=== PATIENT | male | born 1970 | race Caucasian/White ===

== ENCOUNTER 2017-12-19 16:50 | Inpatient (IN) | payer OTHER ==
[2017-12-19] MEDS ORDERED: SODIUM CHLORIDE 0.9% 10ML INJ IV PRN (17:49)
[2017-12-19] MEDS: Ringers Lactate 1,000 ML IV SCH (18:26)
[2017-12-19] MEDS: PIPER/TAZO/NS 3.375gm 3.375 GM/100 ML BAG IVPB SCH (18:31)
[2017-12-19] MEDS: ONDANSETRON 4 MG/2 ML VIAL IV PRN (18:35)
[2017-12-19] MEDS: HYDROMORPHONE HCL 1 MG/ML INJ IV PRN ×2 (18:35→21:24)
[2017-12-19] MEDS: PANTOPRAZOLE 40 MG INJ IVP SCH (19:48)
--- NOTE | 2017-12-19 20:38 | RAD REPORT ---
EXAM DESCRIPTION: RAD - Chest Single View - 12/19/2017 8:31 pm CLINICAL HISTORY: Clearance for possible sx Chest pain. COMPARISON: <Comparisons> FINDINGS: Portable technique limits examination quality. The lungs are grossly clear. The heart is normal in size. No displaced fractures. IMPRESSION: No acute intrathoracic process suspected.
[2017-12-19 20:48] LABS: Urine Appearance CLEAR; Urine Bilirubin NEGATIVE (NEG); Urine Blood NEGATIVE (NEG); Urine Color YELLOW; Urine Glucose NEGATIVE (NEG); Urine Protein NEGATIVE (NEG); Urine Specific Gravity >=1.030 (1.005-1.030)
[2017-12-19 20:49] LABS: Urine Microscopic Reflex NO UMIC
[2017-12-20] MEDS: HYDROMORPHONE HCL 1 MG/ML INJ IV PRN ×6 (00:15→21:15)
[2017-12-20] MEDS: PIPER/TAZO/NS 3.375gm 3.375 GM/100 ML BAG IVPB SCH ×3 (00:16→16:04)
[2017-12-20] MEDS: Ringers Lactate 1,000 ML IV SCH ×3 (00:26→17:21)
[2017-12-20 05:51] LABS: Absolute Lymphocytes (CBC) 1.4 K/uL (0.7-4.9); Absolute Monocytes 0.7 K/uL (0.1-1.3); Absolute Neutrophil 6.7 K/uL (1.8-8.0); Basophils % 0.2 % (0-1.3); Eosinophils % 1.7 % (0-4.4); Hematocrit 43.4 % (39.6-49.0); MCV 95.4 fL (80-100); MPV 8.2 fL (7.6-11.3); Monocytes % 7.9 % (3.3-12.3); RBC Red Blood Cell Count 4.55 M/uL (4.33-5.43)
[2017-12-20 06:07] LABS: Potassium 4.3 mEq/L (3.6-5.0)
[2017-12-20 06:10] LABS: Phosphorus 3.5 mg/dL (2.5-4.3)
[2017-12-20] MEDS: PANTOPRAZOLE 40 MG INJ IVP SCH (09:03)
--- NOTE | 2017-12-20 09:44 | EKG ---
Test Date: 2017-12-19 Test Time: 20:46:52 Vertical Punch Operator: RT Uriarte MEASUREMENT RESULTS: Intervals: Rate: 72 OK: 184 QRSD: 100 QT: 374 QTc: 409 [place]: P: 48 OK: 184 QRS: -9 T: 10 INTERPRETIVE STATEMENTS: Normal sinus rhythm Normal ECG No previous ECG available for comparison Electronically Signed On 12-20-17 09:43:31 CDT by Chris Platt
--- NOTE | 2017-12-20 11:30 | CON ---
Reason For Consultation: Dyspnea on exertion, chest tightness, possibly coronary heart disease. History Of Present Illness: Mr. Seymour is a gentleman, who came into the hospital with abdominal mare n. He was found to have diverticulitis of the sigmoid, seems to be getting better with bowel rest an d antibiotics. I am asked to see him because of his symptoms that he has had for about 2 months, he says with heavy exertion, not moderate exertion. 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 When he stands up, he is lightheaded and dizzy. He was diagnosed with mitral prolapse when he was a teenager. He h as never had diabetes, hypertension, dyslipidemia. No history of stroke, myocardial infarction. Medications: He takes no medicines. Allergies: HAS NO ALLERGIES. Social History: He uses no tobacco. Alcohol use is sporadic, sometimes binge drinking, but it is in frequent. No illegal drugs. Physical Examination: Vital Signs: He is 5 feet 11 inches, 206 pounds. HEENT: Normal. Lungs: Clear. Heart: Within normal limits. I do not hear murmur or a friction rub or a click. Abdomen: Soft. Extremities: No cyanosis, clubbing, or edema. Distal pulses are normal. Diagnostic Data: His electrocardiogram shows everything is normal. Impression: The patient may will have coronary artery disease causing his symptoms. I do not think he has enough mitral regurgitation or left ventricular dysfunction to cause the dyspnea on exertion. So, I am going to ask him to get an echo and a pharmacologic nuclear stress test. I do not think he could walk on a treadmill. He complains of severe foot pain, probably has peripheral neuropathy cau sing that and we will decide on whether to do further testing such as a cardiac cath after those 2 te sts are done. He should also have a lipid panel. DECLAN/MASHA Voice ID: [id number] Report ID: [id number]
[2017-12-20] MEDS: ACETAMINOPHEN 325 MG TABLET PO PRN ×2 (11:55→21:28)
[2017-12-20] MEDS: ONDANSETRON 4 MG/2 ML VIAL IV PRN (16:49)
--- NOTE | 2017-12-20 17:02 | ECHO ---
HEIGHT: 5 ft 11 in WEIGHT: 206 lb 14.4 oz DATE OF STUDY: 12/20/[address]: Chris Platt MD 2-DIMENSIONAL: YES M.MODE: YES DOPPLER: YES COLOR FLOW: YES TDS: PORTABLE: DEFINITY: BUBBLE STUDY: DIAGNOSIS: HISTORY OF TAURUS VALVE PROLAPSE, CHEST PAIN. CARDIAC HISTORY: CATHERIZATION: NO SURGERY: NO PROSTHETIC VALVE: NO PACEMAKER: NO MEASUREMENTS (cm) DIASTOLIC (NORMALS) SYSTOLIC (NORMALS) IVSd 0.9 (0.6-1.2) LA Diam 2.9 (1.9-4.0) LVEF 72% LVIDd 5.1 (3.5-5.7) LVIDs 3.0 (2.0-3.5) %FS 42% LVPWd 0.9 (0.6-1.2) Ao Diam 3.4 (2.0-3.7) 2 DIMENSIONAL ASSESSMENT: RIGHT ATRIUM: NORMAL LEFT ATRIUM: NORMAL RIGHT VENTRICLE: NORMAL LEFT VENTRICLE: NORMAL TRICUSPID VALVE: NORMAL MITRAL VALVE: NORMAL PULMONIC VALVE: NORMAL AORTIC VALVE: NORMAL PERICARDIAL EFFUSION: NONE AORTIC ROOT: NORMAL LEFT VENTRICULAR WALL MOTION: NORMAL DOPPLER/COLOR FLOW: NORMAL COMMENTS: NORMAL TWO DIMENSIONAL ECHOCARDIOGRAM WITH DOPPLER TECHNOLOGIST: JOELLEN SHEETS
--- NOTE | 2017-12-20 17:56 | HP ---
Date of Admission: 12/19/2017 Reason: Abdominal pain. History Of Present Illness: The patient is a 47-year-old gentleman, who comes in with approximately a 4-day history of lower abdominal pain. This was localized into the left lower quadrant, initially crampy in nature, associated with nausea. No vomiting. No diarrhea. Does have constipation. No bl ood in his stool. No dysuria or hematuria. No sore throat, runny nose, cough, headaches, or dizzine ss. Slight shortness of breath on exertion. No fever or chills. Review of Systems: Otherwise unremarkable. The patient never had a colonoscopy. Past Medical History: Mitral valve prolapse, followed by Dr. Betancourt. Past Surgical History: Appendectomy, scrotal surgery for hydrocele, eye surgery. Allergies: NO ALLERGIES. Social History: Denies smoking. Family History: Significant for an SC and brain cancer in the grandparent. Physical Examination: Vital Signs: Stable. He is afebrile. General: He is awake, alert, and oriented x3. Head and Neck: Cranial nerves 2 through 12 grossly within normal limits. No neck masses. No JVD. Throat clear. Neck is supple. Chest: Clear. Heart: S1, S2. Abdomen: Soft, nondistended. Positive bowel sounds. Positive left lower quadrant tenderness with m inimal rebound. No rigidity or guarding. Extremities: Adequately perfused. Neuro: Nonfocal. Diagnostic Data: CT of the abdomen and pelvis reviewed with Dr. Jasso. Has ctct-up-uezxqymi diver ticulitis with just a couple of air pockets right next to the inflammatory area. No free air. No ab scess. White count was elevated at [place] and here is normal, just a left shift. Assessment: Acute sigmoid diverticulitis. Recommendations: IV antibiotics. We will start him on clear liquids with dietary consultation. We will get a consultation with Cardiology regarding his mitral valve prolapse with shortness of breath with exertions and hopefully in the hospital for a couple of days, and the patient will need oral ant ibiotics for 2 weeks after discharge and an outpatient colonoscopy in 4-6 weeks. Plan of care discus sed in detail with the patient. CATHERINE/MASHA Voice ID: [id number]
[2017-12-21] MEDS: PIPER/TAZO/NS 3.375gm 3.375 GM/100 ML BAG IVPB SCH ×3 (00:29→16:20)
[2017-12-21] MEDS: HYDROMORPHONE HCL 1 MG/ML INJ IV PRN ×5 (00:30→20:34)
[2017-12-21] MEDS: Ringers Lactate 1,000 ML IV SCH ×3 (02:00→16:21)
[2017-12-21] MEDS: ACETAMINOPHEN 325 MG TABLET PO PRN ×2 (05:01→10:44)
[2017-12-21 05:43] LABS: Absolute Monocytes 0.6 K/uL (0.1-1.3); Absolute Neutrophil 4.4 K/uL (1.8-8.0); Basophils % 0.2 % (0-1.3); Eosinophils % 3.7 % (0-4.4); Hematocrit 42.4 % (39.6-49.0); Lymphocytes % 27.2 % (15.3-44.8); MCH 33.4 pg (27.0-35.0); MCV 94.9 fL (80-100); MPV 8.3 fL (7.6-11.3); Monocytes % 8.4 % (3.3-12.3); RBC Red Blood Cell Count 4.46 M/uL (4.33-5.43)
[2017-12-21 06:07] LABS: Magnesium 2.1 mg/dL (1.8-2.5); Potassium 4.2 mEq/L (3.6-5.0)
[2017-12-21] MEDS ORDERED: REGADENOSON 0.4 MG/5 ML SYR IV ONE (07:35)
[2017-12-21] MEDS: PANTOPRAZOLE 40 MG INJ IVP SCH (08:34)
--- NOTE | 2017-12-21 11:14 | RAD REPORT ---
EXAM DESCRIPTION: NM - Rest Stress Cardiac Imaging - 12/21/2017 11:02 am CLINICAL HISTORY: Chest pain. COMPARISON: None. TECHNIQUE: The patient was administered approximately 10mCi of Tc 99m Sestamibi prior to resting SPE CT imaging of the heart. The patient was then administered approximately 30 mCi of Tc 99m Sestamibi f ollowing exercise or pharmacologic stress. Multiplanar SPECT images were reviewed. FINDINGS: Small area of diminished radiotracer activity involves the inferior left ventricular myoc ardium on rest and stress images likely secondary to attenuation from the diaphragm. Remainder of the left ventricular myocardium demonstrates normal radiotracer activity. The left ventricular ejection fraction equals 60% IMPRESSION: Negative for a myocardial perfusion defect
--- NOTE | 2017-12-21 13:22 | TREADPHA ---
DX: CHEST PAIN Date of Study: 12/21/17 Ht: 5 11 Wt: 206 lb 14.4 oz Consulting Physician: FRANCO MEDICATIONS: TYLENOL, DILAUDID, ZOFRAN, PRONTONIX, ZOSYN HISTORY: 47 YEAR OLD MALE WITH COMPLAINTS OF DIZZINESS, ABDOMEN PAIN. PHYSICIAL EXAMINATION: RESTING B.P.: 127/83 RESTING H.R.: 59 RESTING EKG: NORMAL PROTOCOL: LEXISCAN EXERCISE TIME: 3:30 B.P. AT [place] STRESS: 118/76 IMPRESSION: LEXISCAN INJECTED CARDIOLITE PER PROTOCOL, SEE NUCLEAR MEDICINE REPORT. NO SUPRA VENTRICULAR TACHYCARDIA, NO VENTRICULAR TACHYCARDIA, NO PREMATURE VENTRICULAR COMPLEXES.
--- NOTE | 2017-12-21 13:49 | PN ---
Date of Progress Note: 12/21/2017 Subjective: The patient is awake, alert. No abdominal pain. He still has shortness of breath. He had an echo and a stress test done, the results of which are pending. Objective: Abdomen: Soft, nondistended. Minimal tenderness in the left lower quadrant. Assessment: Acute sigmoid diverticulitis, dyspnea on exertion. Recommendations: Cardiology follow up. Continue IV antibiotics. We will advance diet. Hopefully d ischarged tomorrow. CATHERINE/MASHA Voice ID: [id number] Report ID: [id number]
[2017-12-22] MEDS: ACETAMINOPHEN 325 MG TABLET PO PRN (00:08)
[2017-12-22] MEDS: PIPER/TAZO/NS 3.375gm 3.375 GM/100 ML BAG IVPB SCH ×3 (00:08→09:00)
[2017-12-22] MEDS: HYDROMORPHONE HCL 1 MG/ML INJ IV PRN ×3 (01:02→23:12)
[2017-12-22] MEDS: Ringers Lactate 1,000 ML IV SCH (02:00)
[2017-12-22] MEDS ORDERED: NA CHLORIDE 0.9% 1,000 ML ONE (05:36)
[2017-12-22] MEDS: PANTOPRAZOLE 40 MG INJ IVP SCH (08:24)
[2017-12-22] MEDS ORDERED: DIPHENHYDRAMINE 50 MG/ML VIAL IV ONE (08:53)
[2017-12-22] MEDS ORDERED: EPINEPHRINE/PF 1 MG/ML AMP IM ONE (09:10)
[2017-12-22] MEDS ORDERED: DEXAMETHASONE 10 MG/ML VIAL IM ONE (09:36)
[2017-12-22] MEDS: NA CHLORIDE 0.9% 1,000 ML IV SCH ×2 (10:00→20:04)
[2017-12-22] MEDS ORDERED: DIPHENHYDRAMINE 25 MG TAB/CAP PO PRN (10:00)
[2017-12-22 12:15] LABS: Absolute Lymphocytes (CBC) 0.5 K/uL (0.7-4.9); Absolute Monocytes 0.3 K/uL (0.1-1.3); Basophils % 0.2 % (0-1.3); Eosinophils % 0.3 % (0-4.4); Hematocrit 46.1 % (39.6-49.0); Lymphocytes % 4.4 % (15.3-44.8); MCH 32.3 pg (27.0-35.0); MCV 94.9 fL (80-100); Monocytes % 2.5 % (3.3-12.3); RBC Red Blood Cell Count 4.86 M/uL (4.33-5.43)
--- NOTE | 2017-12-22 12:17 | PN ---
Mr. Seymour has stress test yesterday that was normal, not suggestive of ischemia. Echocardiogram was normal. So, I recommend we not do any further testing on his heart. This morning at 8 a.m., he dev eloped angioedema with some tongue swollen. He got some epinephrine, diphenhydramine, and dexamethas one, and seems to be doing better. He has been getting Zosyn and Zofran for his diverticulitis. I a m really not entirely sure what gave his anaphylactic reaction. He does not need to have a cardiac c ath or any other testing done on his heart other than what has been done. DECLAN/MASHA Voice ID: [id number] Report ID: [id number]
--- NOTE | 2017-12-22 12:32 | PN ---
Date of Progress Note: 12/22/2017 Subjective: Earlier today, the patient had swelling of his face and tongue obstructing partially his airway. He was given Benadryl and then EpiPen. He is resolved. Dr. Magdaleno was consulted. He was a lso given some steroids. The etiology is unclear; however, it could be secondary to the contrast use for the stress test or Zosyn, and Zosyn was stopped. The patient currently is breathing well. Swel ling has gone down. He feels better, in no distress. No abdominal pain. He is tolerating his diet. Objective: Vital Signs: Stable. Afebrile. Abdomen: Soft, nondistended, nontender. Positive bowel sounds. Assessment: Acute sigmoid diverticulitis, coronary artery disease, and angioedema, etiology unclear. Recommendations: We will monitor the patient another day in the hospital, make sure this improves. We will start him on Cipro and Flagyl for antibiotics. His cath will have to wait and can be done as an outpatient, and plan of care was discussed with Dr. Platt, Dr. Magdaleno, and family. /MODL Voice ID: [id number] Report ID: [id number]
[2017-12-22 13:01] LABS: ALT/SGPT 25 U/L (12-78); AST/SGOT 19 U/L (15-37); Albumin 3.4 g/dL (3.4-5.0); Alkaline Phosphatase 88 U/L (45-117); BUN Blood Urea Nitrogen 8 mg/dL (7-18); Bicarbonate 26 mmol/L (21-32); Bilirubin Total 0.9 mg/dL (0.2-1.0); Glucose Level 95 mg/dL (74-106); Potassium 4.2 mmol/L (3.5-5.1); Protein, Total 7.1 g/dL (6.4-8.2); Sodium Level 138 mmol/L (136-145)
[2017-12-22] MEDS: METRONIDAZOLE 500mg IVPB 500 MG/100 ML BAG IV SCH ×2 (13:02→17:36)
[2017-12-22] MEDS: CIPROFLOXACIN 400mg IV 400 MG/200 ML BAG IV SCH ×2 (13:05→23:13)
[2017-12-22 13:08] LABS: Blood Morphology Comment NOT SEEN (NOT SEEN); Platelet Estimate ADEQ; Urine White Blood Cell Casts OK
--- NOTE | 2017-12-22 14:54 | P.CNS ---
Date of Consult: 12/22/17 HPI: This is a 39-year-old male with no significant past medical history who is admitted to the hospital from all this ER for diverticulitis. Patient was in his general healthy state until this morning when he started having swelling in his tongue and felt like his legs were swollen along with closing of his throat. Patient had Zosyn administer at 1:00 a.m. last night after which she has not had any medications. Patient noted that with the soiling started around 8 o'clock this morning after he woke up from his nap. Patient is scheduled for a cardiac catheterizing today after having a stress test yesterday. Patient was NPO after midnight and last time he had potato soup at around 8:00 p.m. last night. No other offending agents noted. Medicine team was consulted for anaphylactic reaction. PE: Vitals: Temp Pulse Resp BP Pulse Ox 98.7 F 84 16 128/72 97 12/22/17 12:00 12/22/17 12:00 12/22/17 12:00 12/22/17 12:00 12/22/17 12:00 Gen: NAD, AAO x 3. laying in bed. saturating at 97% without oxygen HEENT: Lips on the right side swollen and Tongue on the left side swollen. Uvula swollen as well. Difficulty Swallowing noted. CVS: RRR, No murmmer noted Lung: No wheezing rales or rhonchi, CTABL Abd: NT, ND soft MS: + Pulse and negative edema Neuro: CN 2 - 12 intact Labs: 12/22/17 12:01: Sodium 138, Potassium 4.2, Chloride 106, Carbon Dioxide 26, BUN 8, Creatinine 0.90, Estimated GFR > 90, Glucose 95, Calcium 8.7, Total Bilirubin 0.9, AST 19, ALT 25, Alkaline Phosphatase 88, Serum Total Protein 7.1 , Albumin 3.4, Globulin 3.7 H, Albumin/Globulin Ratio 0.9 L 12/22/17 12:01: WBC 11.9 H D, RBC 4.86, Hgb 15.7, Hct 46.1, MCV 94.9, MCH 32.3, MCHC 34.1, RDW 13.0, Plt Count 267, MPV 8.0, Neutrophils % 92.6 H, Lymphocytes % 4.4 L, Monocytes % 2.5 L, Eosinophils % 0.3, Basophils % 0.2, Absolute Neutrophils 11.0 H, Absolute Lymphocytes 0.5 L, Absolute Monocytes 0.3, Absolute Eosinophils 0.0, Absolute Basophils 0.0, Morphology Comment Not seen Assessment/Plan: 1. Anaphylaxis: Unknown allergen at this time. Epi x 1, Decadron x1 and benadryl x 1. Improvement noted. Will schedule Bendryl and Prednisone q6h for total of 7 days. Stop Zosyn and protonix at this time. IV fluids as well 2. Diverticulitis: Treatment as per surgery 3. MVP: Stress test and ECHO done. Pt was scheduled for cath which is now cancelled. Will be done outpt. Cardiology on the case. Dispo: DC in 24 hrs if continue to improve.
[2017-12-22] MEDS: DIPHENHYDRAMINE 25 MG TAB/CAP PO SCH ×2 (15:09→19:59)
[2017-12-22] MEDS ORDERED: METRONIDAZOLE 500mg IVPB 500 MG/100 ML BAG IV SCH (17:00)
[2017-12-22] MEDS: predniSONE 20 MG TAB PO SCH (19:59)
[2017-12-22] MEDS ORDERED: CIPROFLOXACIN 400mg IV 400 MG/200 ML BAG IV SCH (21:00)
[2017-12-23] MEDS: METRONIDAZOLE 500mg IVPB 500 MG/100 ML BAG IV SCH ×3 (01:37→17:31)
[2017-12-23] MEDS: HYDROMORPHONE HCL 1 MG/ML INJ IV PRN ×2 (01:41→04:46)
[2017-12-23] MEDS: DIPHENHYDRAMINE 25 MG TAB/CAP PO SCH ×4 (03:30→21:26)
[2017-12-23] MEDS: NA CHLORIDE 0.9% 1,000 ML IV SCH (03:32)
[2017-12-23] MEDS: predniSONE 20 MG TAB PO SCH (08:40)
[2017-12-23] MEDS ORDERED: DEXAMETHASONE 10 MG/ML VIAL IV PRN (09:21)
[2017-12-23] MEDS ORDERED: TRAMADOL HCL 50 MG TAB PO PRN (09:55)
[2017-12-23] MEDS: CIPROFLOXACIN 400mg IV 400 MG/200 ML BAG IV SCH ×2 (11:15→21:25)
--- NOTE | 2017-12-23 12:16 | PN ---
Date of Progress Note: 12/23/2017 Subjective: The patient is awake, alert. This morning, he had slight swelling of his lips. His abd ominal pain is minimal. No nausea or vomiting. Objective: Vital Signs: Stable. Afebrile. Abdomen: Benign, soft, nondistended, and nontender. Positive bowel sounds. Laboratory Data: Reviewed. White count yesterday was 11.9 after his anaphylactic reaction. 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 Assessment: Acute sigmoid diverticulitis, angioedema etiology unclear, coronary artery disease. Recommendations: I discussed the case in detail with Dr. Magdaleno. She will decrease the frequency of the Benadryl, increase the dose of the prednisone, monitor him another day. We will keep him on anti biotics of Cipro and Flagyl at this time and if he stabilizes from his angioedema symptoms, he will b e discharged tomorrow on appropriate medications and will follow up with an Allergy/Immunology, [facility] care physician as well as in my office. I will be out of town and Dr. Magdaleno will discharge the pa tient tomorrow. /MODL Voice ID: [id number] Report ID: [id number]
--- NOTE | 2017-12-23 12:25 | P.CNS ---
Date of Consult: 12/23/17 Subjective: Pt seen and examined today. Case DW with Surgery. Pt is still having some swelling of the upper lips today. No new medication given PE: Vitals: Temp Pulse Resp BP Pulse Ox 97 F 57 18 101/58 L 97 12/23/17 08:00 12/23/17 08:00 12/23/17 08:00 12/23/17 08:00 12/23/17 08:00 Gen: NAD, AAO x 3. laying in bed. saturating at 97% without oxygen HEENT: Lips swollen on top and Tongue normal. Uvula normal. Right side facial swelling noted today as well CVS: RRR, No murmmer noted Lung: No wheezing rales or rhonchi, CTABL Abd: NT, ND soft MS: + Pulse and negative edema Neuro: CN 2 - 12 intact Labs: 12/22/17 12:01: Sodium 138, Potassium 4.2, Chloride 106, Carbon Dioxide 26, BUN 8, Creatinine 0.90, Estimated GFR > 90, Glucose 95, Calcium 8.7, Total Bilirubin 0.9, AST 19, ALT 25, Alkaline Phosphatase 88, Serum Total Protein 7.1 , Albumin 3.4, Globulin 3.7 H, Albumin/Globulin Ratio 0.9 L 12/22/17 12:01: Morphology Comment Not seen Assessment/Plan: 1. Anaphylaxis: Unknown allergen at this time. Epi x 1, Decadron x1 and benadryl x 1. Improvement noted. -Increase Benadryl to 50mg q6h and Prednisone 30 BID for total of 7 days. -Stop Zosyn and protonix at this time. 2. Diverticulitis: On Cipro And flagyl 3. MVP: Stress test and ECHO done. Pt was scheduled for cath which is now cancelled. Will be done outpt. Cardiology on the case. Dispo: DC in 24 hrs if continue to improve.
[2017-12-23] MEDS: ONDANSETRON 4 MG/2 ML VIAL IV PRN (20:00)
[2017-12-23] MEDS: MORPHINE 2 MG/ML SYR IV PRN (20:13)
[2017-12-23] MEDS: predniSONE 10 MG TAB PO SCH (21:26)
[2017-12-24] MEDS: METRONIDAZOLE 500mg IVPB 500 MG/100 ML BAG IV SCH ×2 (00:14→08:12)
[2017-12-24] MEDS: MORPHINE 2 MG/ML SYR IV PRN (00:14)
[2017-12-24] MEDS: DIPHENHYDRAMINE 25 MG TAB/CAP PO SCH ×2 (03:45→08:12)
[2017-12-24] MEDS: CIPROFLOXACIN 400mg IV 400 MG/200 ML BAG IV SCH (08:12)
[2017-12-24] MEDS: predniSONE 10 MG TAB PO SCH (08:12)
--- NOTE | 2017-12-24 15:22 | P.DS ---
Admission Date: 12/19/17 Discharge Date: 12/24/17 Disposition: ROUTINE DISCHARGE Discharge Condition: GOOD Reason for Admission: Diverticulitis Consultations: Cardiology and Hospitalist Procedures: None - Problems (1) Chest pain Status: Acute Qualifiers: Chest pain type: unspecified Qualified Code(s): R07.9 - Chest pain, unspecified (2) MVP (mitral valve prolapse) Status: Chronic (3) Anaphylactic reaction Status: Acute Qualifiers: Encounter type: initial encounter Qualified Code(s): T78.2XXA - Anaphylactic shock, unspecified, initial encounter (4) Diverticulitis Onset Date: 12/20/17 Status: Acute Brief History of Present Illness: The patient is a 47-year-old gentleman, who comes in with approximately a 4-day history of lower abdominal pain. This was localized into the left lower quadrant, initially crampy in nature, associated with nausea. No vomiting. No diarrhea. Does have constipation. No blood in his stool. No dysuria or hematuria. No sore throat, runny nose, cough, headaches, or dizziness. Slight shortness of breath on exertion. No fever or chills. Hospital Course: Overall during the hospital stay patient remained stable Patient was initially admitted to the hospital for abdominal pain nausea vomiting and abdominal cramping was found to have diverticulitis and concern was there for possible coronary artery syndrome. Cardiology was consulted by Surgery. Patient was initially started on IV Zosyn for diverticulitis. Cardiology recommended the patient get a stress test here in the hospital which was negative. However given the severity of his symptoms heart catheterizing was also recommended. Heart Cath was cancelled and was recc then as outpt. Patient however developed anaphylactic reaction to an unknown agent here in the hospital and started having lips swollewing, tongue swelling and thoart swelling. At that time hospitalist team was consulted. Patient was given epi pen x1, Decadron x1 and was started on Benadryl 25 mg q.6 hr and steriods. Intially his symptoms resolved after admistration of epi and decadron. However over night pt started having some facial swelling as well. Patient was then given Benadryl 50 mg q.6 hr and prednisone 30 mg b.i.d.. Patient had resolution of his symptoms and was discharged home under stable condition. Pt was discharged with Cipro and Flagyl along with tramadol which were all given to him here in the hospital without any allergic Reaction. Patient was asked to follow up with primary care provider, GI, cardiology. Vital Signs/Physical Exam: Temp Pulse Resp BP Pulse Ox 97.6 F 60 18 105/64 94 12/24/17 12:00 12/24/17 12:00 12/24/17 12:00 12/24/17 12:00 12/24/17 12:00 General: Alert, In no apparent distress HEENT: Atraumatic, PERRLA, EOMI Neck: Supple, JVD not distended Respiratory: Clear to auscultation bilaterally, Normal air movement Cardiovascular: Regular rate/rhythm, Normal S1 S2 Gastrointestinal: Normal bowel sounds, No tenderness Musculoskeletal: No tenderness Integumentary: No rashes Neurological: Normal speech, Normal tone, Normal affect Lymphatics: No axilla or inguinal lymphadenopathy Laboratory Data at Discharge: WBC 11.9 K/uL (4.3-10.9) H D 12/22/17 12:01 Hgb 15.7 g/dL (13.6-17.9) 12/22/17 12:01 Hct 46.1 % (39.6-49.0) 12/22/17 12:01 Plt Count 267 K/uL (152-406) 12/22/17 12:01 Sodium 138 mmol/L (136-145) 12/22/17 12:01 Potassium 4.2 mmol/L (3.5-5.1) 12/22/17 12:01 BUN 8 mg/dL (7-18) 12/22/17 12:01 Creatinine 0.90 mg/dL (0.55-1.3) 12/22/17 12:01 Glucose 95 mg/dL (74-106) 12/22/17 12:01 Phosphorus 3.5 mg/dL (2.5-4.3) 12/20/17 05:19 Magnesium 2.1 mg/dL (1.8-2.5) 12/21/17 05:20 Total Bilirubin 0.9 mg/dL (0.2-1.0) 12/22/17 12:01 AST 19 U/L (15-37) 12/22/17 12:01 ALT 25 U/L (12-78) 12/22/17 12:01 Alkaline Phosphatase 88 U/L (45-117) 12/22/17 12:01 Triglycerides Cancelled 12/21/17 Unknown Cholesterol Cancelled 12/21/17 Unknown HDL Cholesterol Cancelled 12/21/17 Unknown Cholesterol/HDL Ratio Cancelled 12/21/17 Unknown Home Medications: Ciprofloxacin HCl [Cipro 500 MG Tablet] 500 mg PO BID #28 tab 12/24/17 Diphenhydramine [Benadryl*] 50 mg PO Q6H #28 tab 12/24/17 Ondansetron HCl [Zofran] 4 mg PO DAILY PRN #5 tablet 12/24/17 metroNIDAZOLE [Flagyl] 500 mg PO Q8H #42 tablet 12/24/17 predniSONE [Deltasone*] 30 mg PO BID #14 tab 12/24/17 traMADol HCL [Ultram*] 50 mg PO Q6H PRN #15 tab 12/24/17 New Medications: Ciprofloxacin HCl [Cipro 500 MG Tablet] 500 mg PO BID #28 tab Diphenhydramine [Benadryl*] 50 mg PO Q6H #28 tab metroNIDAZOLE [Flagyl] 500 mg PO Q8H #42 tablet Ondansetron HCl [Zofran] 4 mg PO DAILY PRN #5 tablet PRN Reason: Nausea predniSONE [Deltasone*] 30 mg PO BID #14 tab traMADol HCL [Ultram*] 50 mg PO Q6H PRN #15 tab PRN Reason: Pain Patient Discharge Instructions: You will need to F/u with PCP Dr Alejandro. You marysol need to F/u with Cardiology Dr Platt or Dr Darlene Deleon. You will need to F /u with Dr Zeng or Dr Oliveira Diet: Regular Activity: Ad luz marina Followup: Chris Platt MD [ACTIVE - CAN ADMIT] - 1-2 Weeks (CALL THE OFFICE TO MAKE AN APPOINTMENT IN 1-2 WEEKS. ) Chris Alejandro MD [ACTIVE - CAN ADMIT] - 1 Week (CALL THE OFFICE ON WEDNESDAY TO MAKE AN APPOINTMENT IN 1 WEEK. ) Jorge Johnson MD [ACTIVE - CAN ADMIT] - 1-2 Weeks () Nikita Oliveira MD [OUTSIDE PHYSICIAN] - 1 Week (CALL THE OFFICE ON WEDNESDAY TO MAKE AN APPOINTMEN TIN 1 WEEK. ) Yobany Mccullough [OUTSIDE PHYSICIAN] - 1 Week (CALL THE OFFICE ON WEDNESDAY TO MAKE AN APPOINTMENT IN 1 WEEK. )
== END 2017-12-24 11:48 | disposition home or self-care (01) | DRG 392 ==
LOC: 2ND 16:55 → 4TH 12-21 16:49
PROVIDERS: ADMIT Surgery; ATTEND Surgery
DX: K57.32 Diverticulitis of large intestine without perforation or abscess without bleeding (principal); T78.2XXA Anaphylactic shock, unspecified, initial encounter; R07.9 Chest pain, unspecified; I34.1 Nonrheumatic mitral (valve) prolapse; Z53.09 Procedure and treatment not carried out because of other contraindication; T78.3XXA Angioneurotic edema, initial encounter; G62.9 Polyneuropathy, unspecified
CPT/HCPCS: 36415; 71045; 78452; 80048; 80053; 80061; 81003; 83735; 84100; 85025; 93005; 93017; 93306; A9500; C9113; J0171; J0744; J1100; J1170; J2270; J2405; J2543; J2785; J7030; J7512

== ENCOUNTER 2022-08-12 12:17 | Observation (INO) | payer BC, OTHER ==
[2022-08-12] MEDS ORDERED: Ringers Lactate 1,000 ML IV ONE (12:51)
[2022-08-12 12:54] LABS: SARS-CoV-2 Antigen Rapid Res Negative (Negative)
[2022-08-12] MEDS ORDERED: ACETAMINOPHEN 500 MG TAB ONE (13:04)
[2022-08-12] MEDS ORDERED: CELECOXIB 100 MG CAPSULE ONE (13:04)
--- NOTE | 2022-08-12 13:09 | P.HP ---
Date of Service: 08/19/22 PC: This 52-year-old male presented to an outpatient emergency facility with severe right upper quadrant abdominal pain for diagnosis and treatment. HPC: Patient has been experiencing severe right upper quadrant abdominal pain, rating into his back, for about the last 24 to 48 hours. Went to an outpatient facility was found to have cholecystitis with cholelithiasis. He was referred to my office this morning. He is still very uncomfortable, and wants to have his gallbladder removed. PSHx: Previous operations for bilateral variceals PMHx: Negative Social Hx: Denies any allergies Sys R: No cough, wheeze, shortness of breath. No chest pain or palpitations. Says he has been having some mild hesitancy but otherwise no other urological symptoms. O/E: Awake alert uncomfortable HEENT: Nonicteric Chest: Chest movement equal bilaterally Abd: Tender in the right upper quadrant Buras: Intact Data: Has documented cholecystitis with cholelithiasis Impression: Cholecystitis with cholelithiasis, biliary colic Plan: I will take him to the operating room for laparoscopic possible open cholecystectomy with cholangiogram. The risks of this procedure have been discussed. The possibility of bleeding, infection, injury to bile ducts blood vessels and intestines has been described. The possible need for an open and/or further procedures was discussed. He understands and wants to proceed.
[2022-08-12] MEDS ORDERED: ROCURONIUM 50 MG/5 ML VIAL IV ONE (13:34)
[2022-08-12] MEDS ORDERED: MIDAZOLAM HCL 2 MG/2 ML INJ ONE (13:34)
[2022-08-12] MEDS ORDERED: propofoL 200 MG/20 ML VIAL IV ONE (13:34)
[2022-08-12] MEDS ORDERED: FENTANYL CITR 100 MCG/2 ML ONE (13:34)
[2022-08-12] MEDS ORDERED: LIDOCAINE 2% MPF 5 ML VIAL ONE (13:35)
[2022-08-12] MEDS ORDERED: NS 0.9% VIAL 10 ML ONE (14:09)
[2022-08-12] MEDS: CEFOXITIN SODIUM 1 GM/VIAL ONE ×2 (14:15→14:33)
[2022-08-12] MEDS ORDERED: dexAMETHasone 10 MG/ML VIAL ONE (14:32)
[2022-08-12] MEDS ORDERED: KETOROLAC 30 MG/ML INJ ONE (14:33)
[2022-08-12] MEDS ORDERED: ONDANSETRON 4 MG/2 ML VIAL ONE (14:36)
[2022-08-12] MEDS ORDERED: GLYCOPYRROLATE 0.2 MG/ML SYR ONE (15:04)
--- NOTE | 2022-08-12 15:32 | P.OP ---
Preoperative diagnosis: Cholecystitis with cholelithiasis, biliary colic Postoperative diagnosis: The same Primary procedure: Laparoscopic cholecystectomy Secondary procedure: Cholangiogram Anesthesia: General Estimated blood loss: Less than 10 cc Specimen: Gallbladder and contents Operative Technique: The patient was brought the operating room and placed supine on the table. After the induction of adequate general endotracheal anesthesia, the area of the abdomen was prepped with DuraPrep solution, and he was draped in usual aseptic manner. A subumbilical incision was made. This was brought down through the skin and subcutaneous tissue. The Visiport was used to enter the peritoneal cavity and created pneumoperitoneum to approximately 12 mmHg. Under direct vision a 5 mm trocar was placed in the upper midline, and 2 other 5 mm trocars on the right side of the abdominal wall. We were now able to visualize the right upper quadrant. With the patient in reverse Trendelenburg and the table rolled to the left we are able to see the right upper quadrant. Markedly distended gallbladder was noted. We were able to place a grasper on the fundus. We could identify the gallbladder with a large amount of fat around the serosal surface. This was gently dissected away to reveal Chaidez's pouch. A grasper was placed on Chaidez's pouch and we were agile gradually able to expose the cystic duct and the cystic artery. Having obtained the critical view we can see on the upper portion of the cystic duct that there was a stone impacted in this area. We gently milked back. The junction between this and the common bile duct was exceedingly short. We made a small opening and to attempt a cholangiogram however there is ductal opening was not large enough to allow the aggression of our catheter but was close to the common bile duct. Because of this 1 clip was placed across this to secure the cystic duct. The attention was turned back towards the cystic artery. This was clipped and divided in the usual way. At this point the gallbladder was now dissected free from the liver bed. We found an area of accessory duct on the anterior surface a clip was placed on this and this accessory duct was divided. The gallbladder and having now been freed from the liver was placed into an Endo Catch, and brought out through the umbilical trocar site. Attention was turned back to the right upper quadrant. This area was gently irrigated with a saline solution. No biliary staining was noted in the areas. Adequate hemostasis had also been secured. At this point the umbilical trocar site was approximated using the Endo Close and an absorbable suture. The pneumoperitoneum was collapsed, the trocars were removed, and asher applied to the skin. At the end of the procedure he was in a stable condition when sent to the recovery room. Needle sponge instrument count were correct. No drains were placed. Complications: None Transferred to: Recovery Room Condition: Good
[2022-08-12] MEDS ORDERED: ONDANSETRON 4 MG/2 ML VIAL IV PRN (15:38)
[2022-08-12] MEDS: HYDROMORPHONE HCL 1 MG/ML INJ ONE ×2 (15:43→15:48)
[2022-08-12] MEDS ORDERED: HYDROMORPHONE HCL 1 MG/ML INJ ONE (15:51)
[2022-08-12 16:02] VITALS: O2SAT 96
--- OUTSIDE RECORDS SUMMARY | 2022-08-12 16:03 | XMS REPORT | Continuity of Care Document ---
:1970 Author Organization [facility] t Address [address] [place] [address] Care Team Providers Name Role Phone BRONSON MAGDALENO Primary Care Physician Unavailable Bronson Magdaleno Attending Clinician Unavailable ROSIO BRUNO Attending Clinician Unavailable Rosio Bruno MD Attending Clinician Doctor Unassigned, [place] Attending Clinician Unavailable Orville Salas DO Attending Clinician REYMUNDO HINTON Attending Clinician Unavailable REYMUNDO HINTON Attending Clinician Unavailable Reymundo Hinton DO Attending Clinician ROSIO BRUNO Admitting Clinician Unavailable Payers Payer Name Policy Type Policy Number Effective Date Expiration Date Martin weiner [employer] CHOICE [id number] 2019 POS II 00:00:00 [employer] [id number] 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 ity of prolapse prolapse 00:00: [address] [id number] Adult BMI Problem Com mon 30.0-30.9 Spirit kg/sq m [facility] [id number] Repetitive Problem Co mmon intrusions [facility] of sleep [facility] [id number] Hypersomni Problem Com mon a [facility] [id number] Chronic Problem Common fatigue [facility] [id number] BETHEL Problem Common (obstructi Spirit ve sleep [facility] apnea) [facility] [id number] Insomnia, Problem Com mon unspecifie [facility] d type [facility] [id number] Chronic Problem Commo n shortness [facility] of breath [facility] [id number] Depression Problem Co mmon with [facility] anxiety [facility] [id number] Exposure Problem Commo n to tobacco [facility] smoke [facility] [id number] History of Problem C ommon [address]152 diverticul [facility] itis [facility] [id number] Vitamin D Problem Comm on deficiency [facility] [id number] Mixed Problem Common hyperlipid [facility] emia [facility] [id number] Allergic Problem Commo n rhinitis, Spirit unspecifie - [facility] y, Medical unspecifie Center d trigger Dependence Dependence Problem C ommon on CPAP on CPAP [facility] ventilatio ventilatio - [facility] n n [facility] Allergies, Adverse Reactions, Alerts Allergy Allergy Status Severity Reaction(s) Onset Inactive Treating Comm ents Source Name Type Date Date Clinician DOXYCYCL DRUG Active Swelling Univer s INE INGREDI 01-22 ity of 00:00: [address] NO KNOWN Drug Active Univers ALLERGIE Class ity of S [facility] 463 Drug Active Unknown Common allergy [facility] Social History Social Habit Start Date Stop Date Quantity Comments Source History of Common Spirit - Tobacco Use [facility] Sex Assigned At Common Sp kenia - [facility] Exposure to 2022-05-10 2022-05-20 Not sure University of SARS-CoV-2 00:00:00 03:20:00 [facility] (event) Branch Alcohol intake 2022-05-20 2022-05-20 1.71 /d [facility] 00:00:00 00:00:[address] [facility] Tobacco use and 2015-05-24 2015-05-24 Smokeless tobacco Un iversity of exposure 00:00:00 00:00:00 non-user [facility] Smoking Status Start Date Stop Date Source Never smoked tobacco [facility] Medications Ordered Filled Start Stop Current Ordering Indication Dosage Frequency Signature Comments Components Source Medication Medication Date Date Medication? Clinician (SIG) Name Name Vitamin B12 Vitamin B12 2021-07 No 1000ug Common (Cyanocobal (Cyanocobal 2-05 S pirit love) love) 00:00: - [facility] 00 [facility] iopamidol 2021-07- No [id number] 100mL 100 mL, Univers (ISOVUE 07-20 Intravenou ity o f 370-500 mL) 12:30: 12:30 s, ONCE, 1 [place] injection 00 :00 dose, On Medica l 100 mL Wed Branch 05/20/22 at 0630, Routine NaCl 0.9% 2021-07 Yes 1000mL at 999 Univ ers (NS) IV 1-16 mL/hr, ity of infusion 11:30: Intravenou Zuhair as 1,000 mL 00 s, Medical CONTINUOUS Branch , Starting on Wed05/20/22 at 0530, Until Discontinu ed, Routine ketorolac 2021-07- No 30mg 30 mg, Unive rs (TORADOL) 07-20 Slow IV ity of injection 11:30: 10:34 Push, [place] 30 mg 00 :00 ONCE, 1 Medical dose, On Branch Wed05/20/22 at 0530, Routine proMETHazin 2021-07 No 25mg 25 mg, IV Univers e 07-20 Piggyback, ity of (PHENERGAN) 10:45: 10:42 [place] 1 [place] 25 [place] in 00 :00 dose, On Medical NaCl 0.9% [facility] Branch (NS) 50 mL 05/20/22 IV at 0445, piggyback LENI ondansetron 2021-07- No 4mg 4 mg, Slow Univers (ZOFRAN 1-16 11-16 IV Push, ity of (PF)) 09:40: 09:41 ONCE, 1 [place] injection 4 00 :00 dose, On Medi jessica mg Wed05/20/22 at 0345, LENI FENTanyl PF 2021-07- No 50ug 50 mcg, Un brittni (SUBLIMAZE -16 -16 Slow IV ity o f (PF)) 09:35: 09:36 Push, [place] injection 00 :00 ONCE, 1 Medical 50 mcg dose, On Branch Wed05/20/22 at 0345, LENI ondansetron 2021-07- No 4mg 4 mg, Slow Univers (ZOFRAN -16 05-20 IV Push, ity of (PF)) 09:29: 09:30 ONCE, 1 [place] injection 4 00 :00 dose, On Medi jessica mg Wed05/20/22 at 0330, LENI dicyclomine 2021-07 Yes [id number] 20mg Take 1 Univers 20 mg 1-16 tablet by ity of tablet 00:00: mouth [place] 00 every 6 Medical (six) Branch hours as needed for Abdominal pain. traMADoL 2021-07 Yes [id number] 50mg Take 1 Univers (ULTRAM) 50 1-16 tablet by ity of mg tablet 00:00: mouth [place] 00 every 6 Medical (six) Branch hours as needed for Pain (scale 7-10). Indication s: acute pain amoxicillin 2021-07 Yes [id number] 1{tbl} Take 1 Univers -clavulanat 1-16 tablet by ity of e [id number] 00:00: mouth [place] mg per 00 every 12 Medical tablet (twelve) Branch hours. proMETHazin 2021-07 Yes [id number] 25mg Take 1 Univers e 25 mg 1-16 tablet by ity of tablet 00:00: mouth [place] 00 every 6 Medical (six) Branch hours as needed for Nausea and Vomiting (N/V). proMETHazin 2021-07 Yes [id number] 25mg Insert 1 Univers e 25 mg 1-16 Suppositor [place]y of suppository 00:00: [place] 00 rectum Medical every 4 Branch (four) hours as needed for N/V unresponsi ve to oral antiemetic s. Vitamin B12 Vitamin B12 2020-07 No 1000ug Common (Cyanocobal (Cyanocobal 2-22 S pirit love) love) 00:00: - [facility] 00 [facility] Kenalog Kenalog 2020-07 No 40mg Common (Triamcinol (Triamcinol 2-22 S pirit one) one) 00:00: - [facility] 00 [facility] Vitamin B12 Vitamin B12 2020-07 No 1000ug Common (Cyanocobal (Cyanocobal 2-22 S pirit love) love) 00:00: - [facility] 00 [facility] Kenalog Kenalog 2020-07 No 40mg Common (Triamcinol (Triamcinol 2-22 S pirit one) one) 00:00: - [facility] 00 [facility] Symbicort Symbicort 2020-07- No 2{puffs BID Symbicort 160-4.5 160-4.5 08-26- } 160-4.5 MCG/ACT MCG/ACT 00:00: 00:00 MCG/ACT 00 :00 Breo Breo 2020-07- No 1{puff} QD Breo Ellipta Ellipta 08-26 Ellipta 100-25 100-25 00:00: 00:00 100-25 MCG/INH MCG/INH 00 :00 MCG/INH dexamethaso 2019- No 10mg 10 mg, IV Univers ne 04-01 Push, ity of (DECADRON 13:15: 12:02 ONCE, 1 [place] PHOSPHATE[place] 00 :00 dose, Mon Medi jessica injection 04/01/20 at [facility] ch 10 mg 0815, STAT EPINEPHrine 2019- No .3mg 0.3 mg, Un brittni 1:1,000 (1 04-01 Intramuscu it y of mg/mL) 12:15: 11:09 lar, ONCE, [place] (ADRENALIN) 00 :00 1 dose, Medic al injection Mon Branch 0.3 mg 04/01/20 at 0715, Routine pantoprazol 2019- 2020- No 40mg 40 mg, IV Univers e 04-01 Piggyback, ity of (PROTONIX) 12:00: 11:12 ONCE, 1 [place] 40 mg in 00 :00 dose, Mon Medica l NaCl 0.9% 04/01/20 at [facility] (NS) 100 mL 0700, 100 MINI-BAG mL diphenhydrA 2019- No 25mg 25 mg, Uni vers MINE 04-01 Slow IV ity of (BENADRYL) 12:00: 10:57 Push, [place] injection 00 :00 ONCE, 1 Medical 25 mg dose, [facility] 04/01/20 at 0700, STAT famotidine 2019- No 20mg 20 mg, Univ ers (PEPCID 04-01 Slow IV ity of (PF)) 12:00: 10:57 Push, [place] injection 00 :00 ONCE, 1 Medical 20 mg dose, [facility] 04/01/20 at 0700, LENI methylpredn 2019- No 125mg 125 mg, IV Univers isolone sod 04-01 Piggyback, i ty of succ 12:00: 10:57 ONCE, 1 [place] (SOLU-MEDRO 00 :00 dose, [facility] Med ical L) 04/01/20 at [place] injection 0700, STAT 125 mg predniSONE 2020- No [id number] 40mg Take 2 Univers 20 mg 04-01 1004 tablets by ity of tablet 00:00: 04:59 mouth [place] 00 :00 daily for Medical 5 days. [place] budesonide- 2020-0 Yes [id number] 2{puff} Inhale 2 Univers formoteroL 8-03 Puffs 2 ity of (SYMBICORT) 00:00: (two) [place] 160-4.5 00 times Medical mcg/actuati daily. Branch on inhaler CaseId:[id number];Stat us:Approve d; budesonide- 2020-0 Yes [id number] 2{puff} Inhale 2 Univers formoteroL 8-03 Puffs 2 ity of (SYMBICORT) 00:00: (two) [place] 160-4.5 00 times Medical mcg/actuati daily. Branch on inhaler CaseId:[id number];Stat us:Approve d; budesonide- 2020-0 Yes [id number] 2{puff} Inhale 2 Univers formoteroL 8-03 Puffs 2 ity of (SYMBICORT) 00:00: (two) [place] 160-4.5 00 times Medical mcg/actuati daily. Branch on inhaler CaseId:[id number];Stat us:Approve d; budesonide- 2020-0 Yes [id number] 2{puff} Inhale 2 Univers formoteroL 8-03 Puffs 2 ity of (SYMBICORT) 00:00: (two) [place] 160-4.5 00 times Medical mcg/actuati daily. Branch on inhaler CaseId:[id number];Stat us:Approve d; budesonide- 2020-0 Yes [id number] 2{puff} Inhale 2 Univers formoteroL 8-03 Puffs 2 ity of (SYMBICORT) 00:00: (two) [place] 160-4.5 00 times Medical mcg/actuati daily. Branch on inhaler CaseId:[id number];Stat us:Approve d; Kenalog Kenalog 2020-0 No 40mg Common (Triamcinol (Triamcinol 7-28 S pirit one) one) 00:00: - [facility] 00 [facility] Kenalog Kenalog 2020-0 No 40mg Common (Triamcinol (Triamcinol 7-28 S pirit one) one) 00:00: - [facility] 00 [facility] albuterol 2020-0 Yes Inhale. Unive rs sulfate 90 7-16 ity of mcg/actuati 20:34: [place] [id number] Medical Branch albuterol 2020-0 Yes Inhale. Unive rs sulfate 90 7-16 ity of mcg/actuati 20:34: [place] [address] Medical Branch albuterol 2020-0 Yes Inhale. Unive rs sulfate 90 7-16 ity of mcg/actuati 20:34: [place] [facility] albuterol 2020-0 Yes Inhale. Unive rs sulfate 90 7-16 ity of mcg/actuati 20:34: [place] [facility] albuterol 2020-0 Yes Inhale. Unive rs sulfate 90 7-16 ity of mcg/actuati 20:34: [place] [facility] albuterol 2020-0 Yes Inhale. Unive rs sulfate 90 7-16 ity of mcg/actuati 20:34: [place] [facility] albuterol 2020-0 Yes Inhale. Unive rs sulfate 90 7-16 ity of mcg/actuati 20:34: [place] [address] Medical Branch albuterol 2020-0 Yes Inhale. Unive rs sulfate 90 7-16 ity of mcg/actuati 20:34: [place] on [address] 07 Medical Branch albuterol 2020-0 Yes Inhale. Unive rs sulfate 90 7-16 ity of mcg/actuati 20:34: [place] [address] Medical Branch albuterol 2020-0 Yes Inhale. Unive rs sulfate 90 7-16 ity of mcg/actuati 15:34: [place] on [address] Medical Branch albuterol 2020-0 Yes Inhale. Unive rs sulfate 90 7-16 ity of mcg/actuati 15:34: [place] [address] Medical Branch budesonide- 2020-0 Yes [id number] 2{puff} Inhale 2 Univers formoteroL 7-16 Puffs 2 ity of (SYMBICORT) 00:00: (two) [place] 160-4.5 00 times Medical mcg/actuati daily. Branch on inhaler budesonide- 2019-0 Yes [id number] 2{puff} Inhale 2 Univers formoteroL 7-16 Puffs 2 ity of (SYMBICORT) 00:00: (two) [place] 160-4.5 00 times Medical mcg/actuati daily. Branch on inhaler budesonide- 2020-0 Yes [id number] 2{puff} Inhale 2 Univers formoteroL 7-16 Puffs 2 ity of (SYMBICORT) 00:00: (two) [place] 160-4.5 00 times Medical mcg/actuati daily. Branch on inhaler budesonide- 2020-0 Yes [id number] 2{puff} Inhale 2 Univers formoteroL 7-16 Puffs 2 ity of (SYMBICORT) 00:00: (two) [place] 160-4.5 00 times Medical mcg/actuati daily. Branch on inhaler budesonide- 2020-0 Yes [id number] 2{puff} Inhale 2 Univers formoteroL 7-16 Puffs 2 ity of (SYMBICORT) 00:00: (two) [place] 160-4.5 00 times Medical mcg/actuati daily. Branch on inhaler budesonide- 2020-0 Yes [id number] 2{puff} Inhale 2 Univers formoteroL 7-16 Puffs 2 ity of (SYMBICORT) 00:00: (two) [place] 160-4.5 00 times Medical mcg/actuati daily. Branch on inhaler budesonide- 2020-0 2020- No [id number] 2{puff} Inhale 2 Univers formoteroL 7-16 08-03 Puffs 2 ity o f (SYMBICORT) 00:00: 00:00 (two[place] 160-4.5 00 :00 times Medical mcg/actuati daily. Branch on inhaler SERTraline 2020-0 Yes 100mg Take 100 Un brittni 100 mg 7-12 mg by ity of tablet 00:00: mouth [place] 00 daily. Medical Branch SERTraline 2020-0 Yes 100mg Take 100 Un brittni 100 mg 7-12 mg by ity of tablet 00:00: mouth [place] 00 daily. Medical Branch SERTraline 2020-0 Yes 100mg Take 100 Un brittni 100 mg 7-12 mg by ity of tablet 00:00: mouth [place] 00 daily. Medical Branch SERTraline 2020-0 Yes 100mg Take 100 Un brittni 100 mg 7-12 mg by ity of tablet 00:00: mouth [place] 00 daily. Medical Branch SERTraline 2020-0 Yes 100mg Take 100 Un brittni 100 mg 7-12 mg by ity of tablet 00:00: mouth [place] 00 daily. Medical Branch SERTraline 2020-0 Yes 100mg Take 100 Un brittni 100 mg 7-12 mg by ity of tablet 00:00: mouth [place] 00 daily. Medical Branch SERTraline 2020-0 Yes 100mg Take 100 Un brittni 100 mg 7-12 mg by ity of tablet 00:00: mouth [place] 00 daily. Medical Branch SERTraline 2020-0 Yes 100mg Take 100 Un brittni 100 mg 7-12 mg by ity of tablet 00:00: mouth [place] 00 daily. Medical Branch SERTraline 2020-0 Yes 100mg Take 100 Un brittni 100 mg 7-12 mg by ity of tablet 00:00: mouth [place] 00 daily. Medical Branch SERTraline 2020-0 Yes 100mg Take 100 Un brittni 100 mg 7-12 mg by ity of tablet 00:00: mouth [place] 00 daily. Medical Branch SERTraline 2020-0 Yes 100mg Take 100 Un brittni 100 mg 7-12 mg by ity of tablet 00:00: mouth [place] daily. Medical Branch SERTraline 2020-0 Yes 50mg Take 50 mg U nivers 50 mg 7-10 by mouth ity of tablet 00:00: daily. [place] Medical Branch SERTraline 2020-0 Yes 50mg Take 50 mg U nivers 50 mg 7-10 by mouth ity of tablet 00:00: daily. [place] Medical Branch SERTraline 2020-0 Yes 50mg Take 50 mg U nivers 50 mg 7-10 by mouth ity of tablet 00:00: daily. [place] Medical Branch SERTraline 2020-0 Yes 50mg Take 50 mg U nivers 50 mg 7-10 by mouth ity of tablet 00:00: daily. [place] Medical Branch SERTraline 2020-0 Yes 50mg Take 50 mg U nivers 50 mg 7-10 by mouth ity of tablet 00:00: daily. [place] Medical Branch SERTraline 2020-0 Yes 50mg Take 50 mg U nivers 50 mg 7-10 by mouth ity of tablet 00:00: daily. [place] Medical Branch SERTraline 2020-0 Yes 50mg Take 50 mg U nivers 50 mg 7-10 by mouth ity of tablet 00:00: daily. [place] Medical Branch SERTraline 2020-0 Yes 50mg Take 50 mg U nivers 50 mg 7-10 by mouth ity of tablet 00:00: daily. [place] Medical Branch SERTraline 2020-0 Yes 50mg Take 50 mg U nivers 50 mg 7-10 by mouth ity of tablet 00:00: daily. [place] Medical Branch SERTraline 2020-0 Yes 50mg Take 50 mg U nivers 50 mg 7-10 by mouth ity of tablet 00:00: daily. [place] Medical Branch SERTraline 2020-0 Yes 50mg Take 50 mg U nivers 50 mg 7-10 by mouth ity of tablet 00:00: daily. [address] Vitamin B12 Vitamin B12 2019- No 1000ug Common (Cyanocobal (Cyanocobal 2-24 S pirit love) love) 00:00: - [facility] Vitamin B12 Vitamin B12 2018- No 1000ug Common (Cyanocobal (Cyanocobal 2-24 S pirit love) love) 00:00: - [facility] EpiPen EpiPen 2019- Yes Bronson as Common 2-Negrito 2-Negrito 2-09 Magdaleno directed Spirit 00:00: - [facility] Vitamin B12 Vitamin B12 2017-07 No 1000ug Common (Cyanocobal (Cyanocobal 1-09 S pirit love) love) 00:00: - [facility] 00 [facility] Vitamin B12 Vitamin B12 2017-07 No 1000ug Common (Cyanocobal (Cyanocobal 1-09 S pirit love) love) 00:00: - [facility] 00 [facility] acetaminoph 2020- No 1{tbl} Take 1 Tab Univers en-codeine 07-26 by mouth ity of (TYLENOL 00:00: 00:00 every 4 [place] #3) 300-30 00 :00 (four) Medical mg tablet hours as Branch needed for Pain unrelieved by non-narcot ic analgesics . cefUROXime 2020- No 500mg Take 1 Tab Univers (CEFTIN) 07-26 by mouth 2 ity of 500 mg 00:00: 00:00 (two) [place] tablet 00 :00 times Medical daily. Branch acetaminoph 2020- No 1{tbl} Take 1 Tab Univers en-codeine 07-26 by mouth ity of (TYLENOL 00:00: 00:00 every 4 [place] #3) 300-30 00 :00 (four) Medical mg tablet hours as Branch needed for Pain unrelieved by non-narcot ic analgesics . cefUROXime 2020- No 500mg Take 1 Tab Univers (CEFTIN) 07-26 by mouth 2 ity of 500 mg 00:00: 00:00 (two) [place] tablet 00 :00 times Medical daily. Branch traMADOL 2020- No 50mg Take 1 Tab Un brittni (ULTRAM) 50 07-24 by mouth ity of mg tablet 00:00: 00:00 every 6 [place] 00 :00 (six) Medical hours as Branch needed for Pain (scale 4-6). metroNIDAZO 2020- No 500mg Take 1 Tab Univers LE (FLAGYL) 07-24 by mouth 2 i ty of 500 mg 00:00: 00:00 (two) [place] tablet 00 :00 times Medical daily. Branch traMADOL 2016-0 2020- No 50mg Take 1 Tab Un brittni (ULTRAM) 50 07-2416 by mouth ity of mg tablet 00:00: 00:00 every 6 [place] 00 :00 (six) Medical hours as Branch needed for Pain (scale 4-6). metroNIDAZO 2019- No 500mg Take 1 Tab Univers LE (FLAGYL) 07-2416 by mouth 2 i ty of 500 mg 00:00: 00:00 (two) [place] tablet 00 :00 times Medical daily. Branch ProAir HFA ProAir HFA Yes Bronson 2 puffs as Common Magdaleno needed Spirit - [facility] Zoloft Zoloft Yes Bronson Take 1/2 Commo n Magdaleno tab QD x 1 Spirit week then - CHI take 1 tab [facility] Zoloft Zoloft Yes Bronson 1 tablet Commo n Magdaleno (100 50= Spirit 150 mg) - [facility] ProAir HFA ProAir HFA No 2{puffs ProAir HFA 108 (90 108 (90 _as_nee 108 (90 Base) Base) ded} Base) MCG/ACT MCG/ACT MCG/ACT Famotidine Famotidine No Famotidine 20 MG 20 MG 20 MG EpiPen EpiPen No EpiPen 2-Negrito 0.3 2-Negrito 0.3 2-Negrito 0.3 MG/0.3ML MG/0.3ML MG/0.3ML Zoloft 100 Zoloft 100 No 1.5{tab QD Zoloft 100 MG MG let} MG Zoloft 100 Zoloft 100 No 1.5{tab QD Zoloft 100 MG MG let} MG Cetirizine Cetirizine No 1{table QD Cetirizine HCl 10 MG HCl 10 MG t} HCl 10 MG Famotidine Famotidine No BID Famotidine 20 MG 20 MG 20 MG Cetirizine Cetirizine No Cetirizine HCl 10 MG HCl 10 MG HCl 10 MG Sertraline Sertraline No Sertraline HCl 100 MG HCl 100 MG HCl 100 MG Sertraline Sertraline No Sertraline HCl 50 MG HCl 50 MG HCl 50 MG Breo Breo No 1{puff} QD Breo Ellipta Ellipta Ellipta 200-25 200-25 200-25 MCG/INH MCG/INH MCG/INH ProAir HFA ProAir HFA No 2{puffs ProAir HFA 108 (90 108 (90 _as_nee 108 (90 Base) Base) ded} Base) MCG/ACT MCG/ACT MCG/ACT Zoloft 100 Zoloft 100 No 1.5{tab QD Zoloft 100 MG MG let} MG Famotidine Famotidine No Famotidine 20 MG 20 MG 20 MG Famotidine Famotidine No BID Famotidine 20 MG 20 MG 20 MG Zoloft 100 Zoloft 100 No 1.5{tab QD Zoloft 100 MG MG let} MG Cetirizine Cetirizine No 2{table QD Cetirizine HCl 10 MG HCl 10 MG t} HCl 10 MG EpiPen EpiPen No EpiPen 2-Negrito 0.3 2-Negrito 0.3 2-Negrito 0.3 MG/0.3ML MG/0.3ML MG/0.3ML Cetirizine Cetirizine No 1{table QD Cetirizine HCl 10 MG HCl 10 MG t} HCl 10 MG Sertraline Sertraline No Sertraline HCl 100 MG HCl 100 MG HCl 100 MG Famotidine Famotidine No Famotidine 20 MG 20 MG 20 MG Sertraline Sertraline No Sertraline HCl 50 MG HCl 50 MG HCl 50 MG ProAir HFA ProAir HFA No 2{puffs ProAir HFA 108 (90 108 (90 _as_nee 108 (90 Base) Base) ded} Base) MCG/ACT MCG/ACT MCG/ACT Cetirizine Cetirizine No Cetirizine HCl 10 MG HCl 10 MG HCl 10 MG EpiPen EpiPen No EpiPen 2-Negrito 0.3 2-Negrito 0.3 2-Negrito 0.3 MG/0.3ML MG/0.3ML MG/0.3ML Zoloft 100 Zoloft 100 No 2{table QD Zoloft 100 MG MG t} MG Famotidine Famotidine No BID Famotidine 20 MG 20 MG 20 MG Breo Breo No 1{puff} QD Breo Ellipta Ellipta Ellipta 200-25 200-25 200-25 MCG/INH MCG/INH MCG/INH Zoloft 100 Zoloft 100 No 1.5{tab QD Zoloft 100 MG MG let} MG ProAir HFA ProAir HFA No 2{puffs ProAir HFA 108 (90 108 (90 _as_nee 108 (90 Base) Base) ded} Base) MCG/ACT MCG/ACT MCG/ACT Zoloft 50 Zoloft 50 No QD Zoloft 50 MG MG MG EpiPen EpiPen No EpiPen 2-Negrito 0.3 2-Negrito 0.3 2-Negrito 0.3 MG/0.3ML MG/0.3ML MG/0.3ML Zoloft 100 Zoloft 100 No 1.5{tab QD Zoloft 100 MG MG let} MG Cetirizine Cetirizine No QD Cetirizine HCl 10 MG HCl 10 MG HCl 10 MG Famotidine Famotidine No QD Famotidine 20 MG 20 MG 20 MG Famotidine Famotidine No BID Famotidine 20 MG 20 MG 20 MG ProAir HFA ProAir HFA No 2{puffs ProAir HFA 108 (90 108 (90 _as_nee 108 (90 Base) Base) ded} Base) MCG/ACT MCG/ACT MCG/ACT Zoloft 100 Zoloft 100 No 1.5{tab QD Zoloft 100 MG MG let} MG Zoloft 100 Zoloft 100 No 1.5{tab QD Zoloft 100 MG MG let} MG Cetirizine Cetirizine No QD Cetirizine HCl 10 MG HCl 10 MG HCl 10 MG EpiPen EpiPen No EpiPen 2-Negrito 0.3 2-Negrito 0.3 2-Negrito 0.3 MG/0.3ML MG/0.3ML MG/0.3ML Zoloft 50 Zoloft 50 No QD Zoloft 50 MG MG MG Sertraline Sertraline No Sertraline HCl 50 MG HCl 50 MG HCl 50 MG Cetirizine Cetirizine No Cetirizine HCl 10 MG HCl 10 MG HCl 10 MG Sertraline Sertraline No Sertraline HCl 100 MG HCl 100 MG HCl 100 MG Immunizations Ordered Immunization Filled Immunization Date Status Commen ts Source Name Name Malcolm Fowler 2020-01-30 Completed [facility] (Triamcinolone[facility] (Triamcinolone) 14:16:00 - [facility] Malcoml Fowler 2020-01-30 Completed [facility] (Triamcinolone) (Triamcinolone) 14:16:00 [facility] Afluria single dose Afluria single dose 2019-06-27 Completed [facility] 09:50:00 [facility] Afluria single dose Afluria single dose 2019-06-27 Completed [facility] 09:50:00 [facility] Afluria single dose Afluria single dose 2019-06-27 Completed [facility] 09:50:00 [facility] Afluria single dose Afluria single dose 2019-06-27 Completed [facility] 09:50:00 [facility] Afluria single dose Afluria single dose 2019-06-27 Completed [facility] 09:50:00 [facility] Vitamin B12 Vitamin B12 2019-06-27 Completed [facility] (Cyanocobalamin) (Cyanocobalamin) 09:49:00 [facility] Vitamin B12 Vitamin B12 2019-06-27 Completed [facility] (Cyanocobalamin) (Cyanocobalamin) 09:49:00 [facility] Afluria single dose Afluria single dose 2019-06-27 Completed [facility] 00:00:00 [facility] Flucelvax - Flucelvax - 2018-05-13 Completed [facility] multidose vial multidose vial 09:10:00 [facility] Flucelvax - Flucelvax - 2018-05-13 Completed [facility] multidose vial multidose vial 09:10:00 [facility] Flucelvax - Flucelvax - 2018-05-13 Completed [facility] multidose vial multidose vial 09:10:00 [facility] Flucelvax - Flucelvax - 2018-05-13 Completed [facility] multidose vial multidose vial 09:10:00 [facility] Flucelvax - Flucelvax - 2018-05-13 Completed [facility] multidose vial multidose vial 09:10:00 [facility] Vitamin B12 Vitamin B12 2018-05-13 Completed [facility] (Cyanocobalamin) (Cyanocobalamin) 08:59:00 [facility] Vitamin B12 Vitamin B12 2018-05-13 Completed [facility] (Cyanocobalamin) (Cyanocobalamin) 08:59:00 - [facility] Pneumovax (PPSV23) Pneumovax (PPSV23) 2018-04-01 Completed [facility] 11:38:00 [facility] Pneumovax (PPSV23) Pneumovax (PPSV23) 2018-04-01 Completed [facility] 11:38:00 [facility] Pneumovax (PPSV23) Pneumovax (PPSV23) 2018-04-01 Completed [facility] 11:38:00 - [facility] Pneumovax (PPSV23) Pneumovax (PPSV23) 2018-04-01 Completed [facility] 11:38:00 - [facility] Pneumovax (PPSV23) Pneumovax (PPSV23) 2018-04-01 Completed [facility] 11:38:00 [facility] Pneumovax Pneumovax 2018-04-01 Completed [facility] 00:00:00 [facility] Vital Signs Vital Name Observation Time Observation Value Comments Source height 2022-06-08 08:50:00 71 [in_i] [facility] weight 2022-06-08 08:50:00 222.0 [lb_av] [facility] temperature 2022-06-08 08:50:00 97.0 [degF] [facility] bmi 2022-06-08 08:50:00 30.96 kg/m2 [facility] oximetry 2022-06-08 08:50:00 99 % [facility] respiratory rate 2022-06-08 08:50:00 18 /min Comm on [facility] blood pressure 2022-06-08 08:50:00 124 mm[Hg] [facility] - systolic [facility] blood pressure 2022-06-08 08:50:00 79 mm[Hg] [facility] - diastolic [facility] Systolic blood 2022-05-20 12:00:00 135 mm[Hg] Niranjan naik [facility] Diastolic blood 2022-05-20 12:00:00 82 mm[Hg] Unive rsity of pressure [facility] Heart rate 2022-05-20 12:00:00 65 /min Universi ty [facility] Respiratory rate 2022-05-20 12:00:00 16 /min [facility] Oxygen saturation in 2022-05-20 12:00:00 97 /min University Arterial blood by [facility] Pulse oximetry Branch Body temperature 2022-05-20 09:22:00 37 Latonya [facility] Body height 2022-05-20 09:22:00 180.3 cm Universi ty [facility] Body weight 2022-05-20 09:22:00 102.059 kg [facility] BMI 2022-05-20 09:22:00 31.38 kg/m2 [facility] height 2021-09-12 10:50:00 71 [in_i] [facility] weight 2021-09-12 10:50:00 220.6 [lb_av] [facility] temperature 2021-09-12 10:50:00 97.4 [degF] [facility] bmi 2021-09-12 10:50:00 30.76 kg/m2 [facility] oximetry 2021-09-12 10:50:00 97 % [facility] respiratory rate 2021-09-12 10:50:00 17 /min Comm on [facility] blood pressure 2021-09-12 10:50:00 126 mm[Hg] Common [facility] - systolic [facility] blood pressure 2021-09-12 10:50:00 79 mm[Hg] Common [facility] - diastolic [facility] height 2021-06-25 09:50:00 71 [in_i] [facility] weight 2021-06-25 09:50:00 225.0 [lb_av] [facility] temperature 2021-06-25 09:50:00 98.3 [degF] [facility] bmi 2021-06-25 09:50:00 31.38 kg/m2 Common [facility] oximetry 2021-06-25 09:50:00 98 % [facility] respiratory rate 2021-06-25 09:50:00 17 /min Comm on [facility] blood pressure 2021-06-25 09:50:00 123 mm[Hg] Common [facility] - systolic [facility] blood pressure 2021-06-25 09:50:00 79 mm[Hg] Common [facility] - diastolic [facility] height 2021-02-21 09:10:00 71 [in_i] [facility] weight 2021-02-21 09:10:00 220 [lb_av] [facility] temperature 2021-02-21 09:10:00 97.5 [degF] [facility] bmi 2021-02-21 09:10:00 30.68 kg/m2 [facility] blood pressure 2021-02-21 09:10:00 125 mm[Hg] Common [facility] - systolic [facility] blood pressure 2021-02-21 09:10:00 70 mm[Hg] Common [facility] - diastolic [facility] Systolic blood 2020-04-01 14:00:00 114 mm[Hg] Univer sity of pressure [facility] Diastolic blood 2020-04-01 14:00:00 73 mm[Hg] Unive rsity of [facility] Heart rate 2020-04-01 14:00:00 69 /min [facility] Respiratory rate 2020-04-01 14:00:00 20 /min [facility] O[facility] saturation in 2020-04-01 14:00:00 92 /min [facility] Arterial blood by [facility] Pulse oximetry Branch Body temperature 2020-04-01 11:03:00 36.61 Latonya Univ ersity of [facility] Body height 2020-04-01 11:03:00 180.3 cm Universi ty of [facility] Body weight 2020-04-01 10:39:00 95.255 kg Universi ty [facility] BMI 2020-04-01 10:39:00 29.29 kg/m2 Universi ty [facility] Systolic blood 2020-01-18 20:29:00 141 mm[Hg] Univer sity of pressure [facility] Diastolic blood 2020-01-18 20:29:00 79 mm[Hg] Unive rsity of pressure [facility] Heart rate 2020-01-18 20:29:00 91 /min Universi ty [facility] Respiratory rate 2020-01-18 20:29:00 18 /min [facility] Body height 2020-01-18 20:29:00 180.3 cm Universi ty [facility] Body weight 2020-01-18 20:29:00 96.843 kg Universi [facility] BMI 2020-01-18 20:29:00 29.78 kg/m2 Universi [facility] Oxygen saturation in 2020-01-18 20:29:00 98 /min [facility] Arterial blood by [facility] Pulse oximetry Branch Procedures Procedure Date / Time Performed Performing Clinician Sebastien e CT ABDOMEN PELVIS W 2022-05-20 11:45:00 [facility] CONTRAST [facility] Branch LIPASE 2022-05-20 09:32:00 Rosio Bruno [facility] COMP. METABOLIC PANEL 2022-05-20 09:32:00 Rosio Bruno [facility] ([id number]) [facility] CBC WITH DIFF 2022-05-20 09:32:00 Rosio Bruno [facility] NOTICE OF PRIVACY 2022-05-20 09:00:14 Doctor Unassigned, No [facility] [place] PR[facility] Name Medical Branch CONSENT/REFUSAL FOR 2022-05-20 08:59:04 Doctor Unassigned, No [facility] [place] DI[facility] AND Name Medical Branch TREATMENT CLINIC RECORD / SMR 2021-01-13 05:01:00 Doctor Unassigned, No [facility] [place] Name Medical [facility] CONSENT/REFUSAL FOR 2020-04-01 10:35:37 Doctor Unassigned, No [facility] [place] DIAGNOSIS AND Name Medical Branch TREATMENT XR CHEST 2 VW 2020-01-18 21:48:54 [facility] ASSIGNMENT OF BENEFITS 2020-01-18 21:19:53 Doctor Unassigned, No [facility] Encounters Start End Encounter Admission Attending Care Care Encounter Source Date/Time Date/Time Type Type Clinicians Facility Department ID 2021-07-30 Outpatient Magdaleno, STLMLC STLMLC [id number] Common 14:27:52 Bronson 04140 [facility] 2021-07-30 Outpatient Magdaleno, STLMLC STLC [id number] Common 12:26:30 Bronson 49257 [facility] 2021-07-30 Outpatient Magdaleno, STLMLC STLC [id number] Common 11:21:25 Bros[place] [address] [facility] 2021-07-30 Outpatient Magdaleno, STLMLC STLC [id number] Common 11:18:07 Bronson 00368 [facility] 2021-07-30 Outpatient Magdaleno, STLMLC STLC [id number] Common 11:00:38 Bronson 79183 [facility] 2021-07-30 Outpatient Magdaleno, STLMLC STLC [id number] Common 10:59:20 Bronson 46357 [facility] 2021-05-02 Emergency [facility] [id number] Univers 19:39[facility] 2022-06-08 2022-06-08 OFFICE ST[facility] [id number] Co mmon 00:00:00 00:00:00 VISIT [facility] LEVEL 4 [facility] 2022-05-20 2022-05-20 Emergency X [facility] ERT [id number] Univers 03:16:00 06:47:00 [place] ity [facility] 2022-05-20 2022-05-20 Emergency [facility] [id number] Univers 03:16:00 06:47:00 Rosio WEAVER [id number] ity [facility] [id number] [facility] [phone] [place] [address] Branch 2022-05-20 2022-05-20 Orders Doctor TALI [id number] Univers 00:00:00 00:00:00 Only Unassigned, MAYA [id number] [facility] [id number] [place] as [phone] [place] [address] Branch 2021-09-12 2021-09-12 PREV VISIT STLMLC STLMLC [id number] Common 00:00:00 00:00:00 EST AGE Spirit 40-64 - [facility] 2021-06-25 2021-06-25 OFFICE STLMLC STLMLC [id number] Co mmon 00:00:00 00:00:00 VISIT Spirit ESTAB PT - CHI LEVEL 4 [facility] 2021-02-21 2021-02-21 OFFICE STLMLC STLMLC [id number] Co mmon 00:00:00 00:00:00 VISIT Spirit ESTAB PT - CHI LEVEL 4 [facility] 2021-01-28 2021-01-28 (TEL) STLMLC STLMLC [id number] Co mmon 00:00:00 00:00:00 [facility] 2021-01-13 2021-01-13 Orders Doctor TALI [id number] Univers 00:00:00 00:00:00 Only Unassigned, MAYA [id number] [facility] [id number] [place] as [phone] [address] 2020-08-30 2020-08-30 Outpatient STLMLC STLMLC [id number] Common 00:00:00 00:00:00 [facility] 2020-08-30 2020-08-30 Outpatient STLMLC STLMLC [id number] Common 00:00:00 00:00:00 [facility] 2020-08-02 2020-08-02 Outpatient STLMLC STLMLC [id number] Common 00:00:00 00:00:00 [facility] 2020-04-01 2020-04-01 Emergency CAROLINA Salas [id number] Univers 05:41:00 09:16:00 Orville Weaver [id number] i [id number] [phone] [facility] [address] [place] 2020-03-22 2020-03-22 Outpatient R REYMUNDO HINTON [facility] [id number] Univers 15:40:00 15:40:00 REYMUNDO HINTON i ty of [facility] 2020-01-30 2020-01-30 Outpatient Austin Nye [id number] Common 13:45:00 13:45:00 t remocean [facility] Ablynx [facility] 2020-01-26 2020-01-26 Telephone [facility] [id number] Univers 00:00:00 00:00:00 Yuripaulino TracyMathias [id number] i [id number] [phone] [address] 2020-01-19 2020-01-19 Telephone [facility] [id number] Univers 00:00:00 00:00:00 Remyundo Weaver [id number] i ty [id number] [phone] [place] [address] 2020-01-18 2020-01-18 [facility] [id number] Univers 16:41:00 23:59:00 Encounter Tasneemkrispaulino TracyMathias [id number] ity [place] [id number] [place] [id number] [facility] [address] 2020-01-18 2020-01-18 Office [facility] [id number] Univers 15:17:34 16:16:16 Visit Tasneemkrispaulino TracyMathias [id number] i ty [place] [id number] [phone] [address] 2020-01-18 2020-01-18 Outpatient R REYMUNDO HINTON [facility] [id number] Univers 15:20:00 15:20:00 REYMUNDO HINTON i ty of [facility] 2020-01-18 2020-01-18 Orders Doctor TALI [id number] Univers 00:00:00 00:00:00 Only Unassigned, MAYA [id number] ity [place] [facility] [id number] [place] [phone] [place] [address] Branch 2020-01-09 2020-01-09 [facility] [id number] Common 10:41:00 10:41:00 t Specialty/U Sp kenia Specialty rology - [facility] /Urology Clinic [facility] 2020-01-01 2020-01-01 [facility] [id number] Common 13:20:00 13:20:[address] [facility] [address] [facility] 2019-12-29 2019-12-29 [facility] [id number] Common 11:40:00 11:40:00 [place] [address] [facility] 2019-12-26 2019-12-26 [facility] [id number] Common 11:22:00 11:22:00 t [place] [address] [facility] 2019-12-26 2019-12-26 [facility] [id number] Common 10:04:00 10:04:00 t [place] [address] [facility] 2019-12-18 2019-12-18 Out[facility] [id number] Common 09:16:00 09:16:00 t [place] [address] [facility] 2019-11-28 2019-11-28 [facility] [id number] Common 10:00:00 10:00:00 t [place] [address] [facility] 2019-11-28 2019-11-28 Outpatient STLMLC STLMLC [id number] Common 00:00:00 00:00:00 [facility] 2019-10-20 2019-10-20 [facility] [id number] Common 11:15:00 11:15:00 t [place] [address] [facility] 2019-07-18 2019-07-18 [facility] [id number] Common 16:45:00 16:45:00 t [place] [address] [facility] 2019-06-27 2019-06-27 [facility] [id number] Common 08:15:00 08:15:00 t [place] [address] [facility] 2019-06-26 2019-06-26 [facility] [id number] Common 16:25:00 16:25:00 t [place] [address] [facility] 2019-06-14 2019-06-14 [facility] [id number] Common 13:49:00 13:49:00 t [place] [address] [facility] 2019 2019 Outpatient [facility] [id number] Common 15:33:00 15:33:00 t [place] [address] [facility] 2019-06-12 2019-06-12 [facility] [id number] Common 09:15:00 09:15:00 t [place] [address] [facility] 2018-04-01 2018-04-01 Outpatient [facility] [id number] Common 08:30:00 08:30:00 t [place] [address] [facility] Results Test Description Test Time Test Comments Results Result Sourc e Comments XR CHEST 2 VW 2020-01-18 FINDINGS/IMPRESSI Univ ersity of 22:09:02 ON: The lungs are [place] adequately Branch expanded and clear without focal consolidation. Nopleural effusion or pneumothorax is visualized. The heart is normal in size. No acute osseous abnormality is identified. EXAM: XR CHEST 2 VW HISTORY: ?49 yearsyear-old Male dyspnea COMPARISON: None [facility], Radiant Results Inft 01/18/2020 5:10 PM CDTEXAM: XR CHEST 2 VWHISTORY: 49 yearsyear-old Male dyspnea COMPARISON: NoneIMPRESSIONFIN DINGS/IMPRESSION: The lungs are adequately expanded and clear without focal consolidation. Nopleural effusion or pneumothorax is visualized.The heart is normal in size.No acute osseous abnormality is identified.
[2022-08-12 16:20] VITALS: BMI 31.4
[2022-08-12] MEDS: Ringers Lactate 1,000 ML IV SCH (16:30)
[2022-08-12] MEDS ORDERED: PNEUMOCOCCAL VACCINE 0.5 ML IMVAC ONE (17:00)
[2022-08-12] MEDS: HYDROCODONE/APAP 7.5/325 MG TAB PO PRN ×2 (17:39→22:48)
[2022-08-12] MEDS: MORPHINE 4 MG/ML SYR IV PRN (19:37)
[2022-08-13] MEDS: MORPHINE 4 MG/ML SYR IV PRN ×3 (00:21→08:57)
[2022-08-13] MEDS: Ringers Lactate 1,000 ML IV SCH (02:54)
[2022-08-13 13:01] VITALS: BP 103/61; TEMP 97.3
== END 2022-08-13 12:06 | disposition home or self-care (01) ==
LOC: OR 12:17 → 2ND 15:59
PROVIDERS: ADMIT Surgery; ATTEND Surgery
PROC: BF532Z0 Other Imaging of Gallbladder and Bile Ducts using Fluorescing Agent, Intraoperative (ICD-10-PCS; 2022-08-12)
PROC: 0FT44ZZ Resection of Gallbladder, Percutaneous Endoscopic Approach (ICD-10-PCS; principal; 2022-08-12 15:30)
DX: K80.10 Calculus of gallbladder with chronic cholecystitis without obstruction (principal); K80.50 Calculus of bile duct without cholangitis or cholecystitis without obstruction; Z20.822 Contact with and (suspected) exposure to COVID-19
CPT/HCPCS: 36415; 87811; 88304; 94010; A4216; G0378; G0379; J0694; J1100; J1170; J2001; J2250; J2405; J2704; J3010; J7120

== ENCOUNTER 2022-11-13 13:34 | Emergency (ER) | payer BC ==
--- OUTSIDE RECORDS SUMMARY | 2022-11-13 13:38 | XMS REPORT | Continuity of Care Document ---
:1970 Author Organization [facility] t Address [address] [place] [address] [address] [place] [address] Care Team Providers Name Role Phone Michael Magdaleno Primary Care Physician Michael Magdaleno Attending Clinician Unavailable GEORGE CASTRO Attending Clinician Unavailable GEORGE CASTRO Attending Clinician Unavailable ROSIO BRUNO Attending Clinician Unavailable Rosio Bruno MD Attending Clinician Doctor Unassigned, Mchenry Attending Clinician Unavailable Orville Salas DO Attending Clinician REYMUNDO HINTON Attending Clinician Unavailable REYMUNDO HINTON Attending Clinician Unavailable Reymundo Hinton DO Attending Clinician ROSIO BRUNO Admitting Clinician Unavailable Payers Payer Name Policy Type Policy Number Effective Date Expiration Date S regine [employer] CHOICE [id number] 2019 POS II 00:00:00 [facility] [id number] 2020 00:00:00 [employer] 6 [id number] Common Spiri t [facility] Problems Condition Condition Condition Status Onset Resolution Last Treating Co mments Source Name Details Category Date Date Treatment Clinician Date Knee pain, Knee pain, Disease Active U nivers right right 7-21 ity of 00:00: [address] Knee pain, Knee pain, Disease Active U nivers right right 01-22 ity of 00:: [address] 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 -20 ity of prolapse prolapse 00:00: [address] [id number] Adult BMI Problem Com mon 30.0-30.9 Spirit kg/sq m [facility] [id number] Repetitive Problem Co mmon intrusions [facility] of sleep [facility] [id number] Hypersomni Problem Com mon a [facility] [id number] Chronic Problem Common fatigue [facility] [id number] BETHEL Problem Common (obstructi [facility] ve sleep [facility] apnea) [facility] [id number] Insomnia, Problem Com mon unspecifie Spirit d type [facility] [id number] Chronic Problem Commo n shortness [facility] of breath [facility] [id number] Depression Problem Co mmon with [facility] anxiety [facility] [id number] Exposure Problem Commo n to tobacco Spirit smoke [facility] [id number] History of Problem C om[place] [address] diverticul [facility] itis [facility] [id number] Vitamin D Problem Comm on deficiency [facility] [id number] Mixed Problem Common hyperlipid [facility] emia [facility] [id number] Allergic Problem Commo n rhinitis, Spirit unspecifie - [facility] y, Medical unspecifie Center d trigger Dependence Dependence Problem C ommon on CPAP on CPAP [facility] ventilatio ventilatio - [facility] n n [facility] Allergies, Adverse Reactions, Alerts Allergy Allergy Status Severity Reaction(s) Onset Inactive Treating Comm ents Source Name Type Date Date Clinician DOXYCYCL DRUG Active Swelling Univer s INE INGREDI 01-22 ity of 00:00: [address] NO KNOWN Drug Active Univers ALLERGIE Class ity of S [facility] 463 Drug Active Unknown Common allergy [facility] Social History Social Habit Start Date Stop Date Quantity Comments Source History of Common Spirit - Tobacco Use [facility] Sex Assigned At Common Sp kenia - [facility] Exposure to 2022-08-05 2022-08-15 Not sure University of SARS-CoV-2 00:00:00 02:55:00 [facility] (event) [place] Alcohol intake 2022-08-15 2022-08-15 1.71 /d [facility] 00:00:00 00:00:00 [facility] Tobacco use and 2015-05-24 2015-05-24 Smokeless tobacco Un iversity of exposure 00:00:00 00:00:00 non-user [facility] Smoking Status Start Date Stop Date Source Never smoked tobacco [facility] Medications Ordered Filled Start Stop Current Ordering Indication Dosage Frequency Signature Comments Components Source Medication Medication Date Date Medication? Clinician (SIG) Name Name tranexamic 2022- No 60mg/kg 60 Uni vers acid 08-15 /h mg/kg/hr ity of (CYKLOKAPRO 11:30: 11:31 ?99.8 kg [place] N) 1,000 mg 00 :00 (1,497 Medica l in NaCl mL/hr), IV Branch 0.9% (NS) Infusion, 250 mL ONCE, 1 infusion dose, On 08/15/22 at 0530, Routine famotidine No 20mg 20 mg, Univ ers (PEPCID 08-15 Slow IV ity of (PF)) 10:30: 11:03 Push, [place] injection 00 :00 ONCE, 1 Medical 20 mg dose, On Branch 08/15/22 at 0430, LENI methylpredn 2022- No 125mg 125 mg, U nivers isolone sod 08-15 Intravenou i ty of succ 10:00: 09:22 s, ONCE, 1 [place] (SOLU-MEDRO 00 :00 dose, On Medi jessica L) Sat Branch injection 08/15/22 at 125 mg 0400, 2 mL diphenhydrA 2022- No 25mg 25 mg, Uni vers MINE 08-15 Slow IV ity of (BENADRYL) 09:15: 09:24 Push, [place] injection 00 :00 ONCE, 1 Medical 25 mg dose, On Branch 08/15/22 at 0315, STAT diphenhydrA Yes [id number] 50mg Take 1 Univers MINE 50 mg 2-11 capsule by ity of capsule 00:00: mouth [place] 00 every 6 Medical (six) Branch hours as needed for Allergies. famotidine Yes [id number] 40mg Take 1 Univers (PEPCID) 40 2-11 tablet by ity of mg tablet 00:00: [place] 00 the Medical morning. Branch predniSONE 2022- Yes [id number] 40mg Take 2 Univers 20 mg 2-11 -17 tablets by ity of tablet 00:00: 05:59 mouth [place] 00 :00 every Medical morning Branch for 5 days. EPINEPHrine 2022- Yes [id number] .3mg 0.3 mL by Univers (EPIPEN) 08-1512 Intramuscu ity of 0.3 mg/0.3 00:00: 05:59 lar route [place] mL 00 :00 once now Medical injection for 1 Branch dose. Vitamin B12 Vitamin B12 2021-07 No 1000ug Common (Cyanocobal (Cyanocobal 2-05 S pirit love) love) 00:00: - [facility]I 00 [facility] iopamidol 2021-07- No [id number] 100mL 100 mL, Univers (ISOVUE 07-20 Intravenou [...] On Branch Wed05/20/22 at 0530, Routine proMETHazin 2021-07- No 25mg 25 mg, IV Univers e 07-20 Piggyback, ity of (PHENERGAN) 10:45: 10:42 [place]CE[place] 1 [place] 25 mg in 00 :00 dose, On Medical NaCl 0.9% Wed Branch (NS) 50 mL 05/20/22 IV at 0445, piggyback LENI ondansetron 2021-07- No 4mg 4 mg, Slow Univers (ZOFRAN -16 05-20 IV Push, ity of (PF)) 09:40: 09:41 ONCE, 1 [place] injection 4 00 :00 dose, On Medi jessica mg Wed Branch 05/20/22 at 0345, LENI FENTanyl PF 2021-07- No 50ug 50 mcg, Un brittni (SUBLIMAZE 07-20 Slow IV ity o f (PF)) 09:35: 09:36 Push, [place] injection 00 :00 ONCE, 1 Medical 50 mcg dose, On Branch 05/20/22 at 0345, LENI ondansetron 2021-07- No 4mg 4 mg, Slow Univers (ZOFRAN 16 05-20 IV Push, ity of (PF)) 09:29: 09:30 ONCE, 1 [place] injection 4 00 :00 dose, On Medi jessica mg Wed Branch 05/20/22 at 0330, LENI dicyclomine 2021-07 Yes [id number] 20mg Take 1 Univers 20 mg 1-16 [...] Indication s: acute pain amoxicillin 2021-07 Yes [id number] 1{tbl} Take 1 Univers -clavulanat 1-16 tablet by ity of e 875-125 00:00: mouth [place] mg per 00 every 12 Medical tablet (twelve) Branch hours. proMETHazin 2021-07 Yes [id number] 25mg Take 1 Univers e 25 mg 1-16 tablet by ity of tablet 00:00: mouth [place] 00 every 6 Medical (six) Branch hours as needed for Nausea and Vomiting (N/V). proMETHazin 2021-07 Yes [id number] 25mg Insert 1 Univers e 25 mg 1-16 Suppositor ity of suppository 00:00: [place] rectum Medical every 4 Branch (four) hours as needed for N/V unresponsi ve to oral antiemetic s. dicyclomine 2021-07 Yes [id number] 20mg Take 1 Univers 20 mg 1-16 [...] Indication s: acute pain amoxicillin 2021-07 Yes [id number] 1{tbl} Take 1 Univers -clavulanat 1-16 tablet by ity of e 875-125 00:00: mouth [place] mg per 00 every 12 Medical tablet (twelve) Branch hours. proMETHazin 2021-07 Yes [id number] 25mg Take 1 Univers e 25 mg 1-16 tablet by ity of tablet 00:00: mouth [place] 00 every 6 Medical (six) Branch hours as needed for Nausea and Vomiting (N/V). proMETHazin 2021-07 Yes [id number] 25mg Insert 1 Univers e 25 mg 1-16 Suppositor ity of suppository 00:00: [place] 00 rectum Medical every 4 Branch (four) hours as needed for N/V unresponsi ve to oral antiemetic s. Vitamin B12 Vitamin B12 2020-07 No 1000ug Common (Cyanocobal (Cyanocobal 2-22 S pirit love) love) 00:00: - [facility] 00 [facility] 2020-07 No 40mg Common (Triamcinol (Triamcinol 2-22 S pirit one) one) 00:00: - CHI [facility] Vitamin B12 Vitamin B12 2020-07 No 1000ug Common (Cyanocobal (Cyanocobal 2-22 S pirit love) love) 00:00: - [facility] Kenalog 2020-07 No 40mg Common (Triamcinol (Triamcinol 2-22 S pirit one) one) 00:00: - [facility] 00 [facility] Symbicort Symbicort 2020-07- No 2{puffs BID Symbicort [...] dose, Mon Medi jessica injection 04/01/20 at [facility] ch 10 mg 0815, STAT EPINEPHrine 2019- No .3mg 0.3 mg, Un brittni 1:1,000 (1 04-01 Intramuscu it y of mg/mL) 12:15: 11:09 lar, [place]CE[place] (ADRENALIN) 00 :00 1 dose, Medic al injection Mon Branch 0.3 mg 04/01/20 at 0715, Routine pantoprazol 2019- No 40mg 40 mg, IV Univers e 04-01 Piggyback, ity of (PROTONIX) 12:00: 11:12 ONCE, 1 [place] as 40 mg in 00 :00 dose, Mon Medica l NaCl 0.9% 04/01/20 at [facility] (NS) 100 mL 0700, 100 MINI-BAG mL diphenhydrA 2019- No 25mg 25 mg, Uni vers MINE 04-01 Slow IV ity of (BENADRYL) 12:00: 10:57 Push, [place] injection 00 :00 ONCE, 1 Medical 25 mg dose, Mon Branch 04/01/20 at 0700, STAT famotidine 2019- No 20mg 20 mg, Univ ers (PEPCID 04-01 Slow IV ity of (PF)) 12:00: 10:57 Push, [place] injection 00 :00 ONCE, 1 Medical 20 mg dose, Mon Branch 04/01/20 at 0700, LENI methylpredn 2019- No 125mg 125 mg, IV Univers isolone sod 04-01 Piggyback, i ty of succ 12:00: 10:57 ONCE, 1 [place] (SOLU-MEDRO 00 :00 dose, Mon Med ical L) 04/01/20 at Branch injection 0700, STAT 125 mg predniSONE 2020- No [id number] 40mg Take 2 Univers 20 mg 04-01 tablets by ity of tablet 00:00: 04:59 mouth [place] 00 :00 daily for Medical 5 days. [place] budesonide- 2020-0 Yes [id number] 2{puff} Inhale 2 Univers formoteroL 8-03 Puffs 2 ity of (SYMBICORT) 00:00: (two) [place] 160-4.5 00 times Medical mcg/actuati daily. Branch on inhaler CaseId:[id number];Stat us:Approve d; budesonide- 2020-0 Yes [id number] 2{puff} Inhale 2 Univers formoteroL 8-03 Puffs 2 ity of (SYMBICORT) 00:00: (two) [place] 160-4.5 00 times Medical mcg/actuati daily. Branch on inhaler CaseId:[id number];Stat us:Approve d; budesonide- 2020-0 Yes [id number] 2{puff} Inhale 2 Univers formoteroL 8-03 Puffs 2 ity of (SYMBICORT) 00:00: (two) [place] 160-4.5 00 times Medical mcg/actuati daily. Branch on inhaler CaseId:[id number];Stat us:Approve d; budesonide- 2020-0 Yes [id number] 2{puff} Inhale 2 Univers formoteroL 8-03 Puffs 2 ity of (SYMBICORT) 00:00: (two) [place] 160-4.5 00 times Medical mcg/actuati daily. Branch on inhaler CaseId:[id number];Stat us:Approve d; budesonide- 2020-0 Yes [id number] 2{puff} Inhale 2 Univers formoteroL 8-03 Puffs 2 ity of (SYMBICORT) 00:00: (two) [place] 160-4.5 00 times Medical mcg/actuati daily. Branch on inhaler CaseId:[id number];Stat us:Approve d; budesonide- 2020-0 Yes [id number] 2{puff} Inhale 2 Univers formoteroL 8-03 Puffs 2 ity of (SYMBICORT) 00:00: (two) [place] 160-4.5 00 times Medical mcg/actuati daily. Branch on inhaler CaseId:[id number];Stat us:Approve d; Kenalog Kenalog 2020-0 No 40mg Common (Triamcinol (Triamcinol 7-28 S pirit one) one) 00:00: - [facility] 00 [facility] Kenalog Kenalog 2020-0 No 40mg Common (Triamcinol (Triamcinol 7-28 S pirit one) one) 00:00: - [facility] 00 [facility] albuterol 2020-0 Yes Inhale. Unive rs sulfate 90 7-16 ity of mcg/actuati 20:34: [place] on [place] [address] Medical Branch albuterol 2020-0 Yes Inhale. Unive rs sulfate 90 7-16 ity of mcg/actuati 20:34: [place] on [place] [address] Medical Branch albuterol 2020-0 Yes Inhale. Unive rs sulfate 90 7-16 ity of mcg/actuati 20:34: [place] on [place] [address] Medical Branch albuterol 2020-0 Yes Inhale. Unive rs sulfate 90 7-16 ity of mcg/actuati 20:34: [place] on [place] [address] Medical Branch albuterol 2020-0 Yes Inhale. Unive rs sulfate 90 7-16 ity of mcg/actuati 20:34: [place] on [place] [address] Medical Branch albuterol 2020-0 Yes Inhale. Unive rs sulfate 90 7-16 ity of mcg/actuati 20:34: [place] on [place] [address] Medical Branch albuterol 2020-0 Yes Inhale. Unive rs sulfate 90 7-16 ity of mcg/actuati 20:34: [place] on [place] [address] Medical Branch albuterol 2020-0 Yes Inhale. Unive rs sulfate 90 7-16 ity of mcg/actuati 20:34: [place] on [place] [address] Medical Branch albuterol 2020-0 Yes Inhale. Unive rs sulfate 90 7-16 ity of mcg/actuati 20:34: [place] on [facility] 07 Medical Branch albuterol 2020-0 Yes Inhale. Unive rs sulfate 90 7-16 ity of mcg/actuati 15:34: [place] on [facility] Medical Branch albuterol 2020-0 Yes Inhale. Unive rs sulfate 90 7-16 ity of mcg/actuati 15:34: [place] on [facility] Medical Branch albuterol 2020-0 Yes Inhale. Unive rs sulfate 90 7-16 ity of mcg/actuati 15:34: [place] on [facility] 07 Medical Branch budesonide- 2020-0 Yes [id number] 2{puff} Inhale 2 Univers formoteroL 7-16 Puffs 2 ity of (SYMBICORT) 00:00: (two) [place] 160-4.5 00 times Medical mcg/actuati daily. Branch on inhaler budesonide- 0 Yes [id number] 2{puff} Inhale 2 Univers formoteroL 7-16 Puffs 2 ity of (SYMBICORT) 00:00: (two) [place] 160-4.5 00 times Medical mcg/actuati daily. Branch on inhaler budesonide- 0 Yes [id number] 2{puff} Inhale 2 Univers formoteroL 7-16 Puffs 2 ity of (SYMBICORT) 00:00: (two) [place] 160-4.5 00 times Medical mcg/actuati daily. Branch on inhaler budesonide- 2019-0 Yes [id number] 2{puff} Inhale 2 Univers formoteroL 7-16 Puffs 2 ity of (SYMBICORT) 00:00: (two) [place] 160-4.5 00 times Medical mcg/actuati daily. Branch on inhaler budesonide- 2020-0 Yes [id number] 2{puff} Inhale 2 Univers formoteroL 7-16 Puffs 2 ity of (SYMBICORT) 00:00: (two) [place] 160-4.5 00 times Medical mcg/actuati daily. Branch on inhaler budesonide- 2019-0 Yes [id number] 2{puff} Inhale 2 Univers formoteroL 7-16 Puffs 2 ity of (SYMBICORT) 00:00: (two) [place] 160-4.5 00 times Medical mcg/actuati daily. Branch on inhaler budesonide- 2020-0 2020- No [id number] 2{puff} Inhale 2 Univers formoteroL 7-16 08-03 [...] mg by ity of tablet 00:00: mouth [place] 00 daily. Medical Branch SERTraline 2020-0 Yes 50mg Take 50 mg U nivers 50 mg 7-10 by mouth ity of tablet 00:00: daily. [place] [facility] SERTraline 2020-0 Yes 50mg Take 50 mg U nivers 50 mg 7-10 by mouth ity of tablet 00:00: daily. [place] [facility] SERTraline 2020-0 Yes 50mg Take 50 mg U nivers 50 mg 7-10 by mouth ity of tablet 00:00: daily. [place] [facility] SERTraline 2020-0 Yes 50mg Take 50 mg U nivers 50 mg 7-10 by mouth ity of tablet 00:00: daily. [place] [facility] SERTraline 2020-0 Yes 50mg Take 50 mg U nivers 50 mg 7-10 by mouth ity of tablet 00:00: daily. [place] [facility] SERTraline 2020-0 Yes 50mg Take 50 mg U nivers 50 mg 7-10 by mouth ity of tablet 00:00: daily. [place] [facility] SERTraline 2020-0 Yes 50mg Take 50 mg U nivers 50 mg 7-10 by mouth ity of tablet 00:00: daily. [place] [facility] SERTraline 2020-0 Yes 50mg Take 50 mg U nivers 50 mg 7-10 by mouth ity of tablet 00:00: daily. [place] [facility] SERTraline 2020-0 Yes 50mg Take 50 mg U nivers 50 mg 7-10 by mouth ity of tablet 00:00: daily. [place] [facility] SERTraline 2020-0 Yes 50mg Take 50 mg U nivers 50 mg 7-10 by mouth ity of tablet 00:00: daily. [place] [facility] SERTraline 2020-0 Yes 50mg Take 50 mg U nivers 50 mg 7-10 by mouth ity of tablet 00:00: daily. [place] [facility] SERTraline 2020-0 Yes 50mg Take 50 mg U nivers 50 mg 7-10 by mouth ity of tablet 00:00: daily. [address] Vitamin B12 Vitamin B12 2018- No 1000ug Common (Cyanocobal (Cyanocobal 2-24 S vandana love) ivan) 00:00: - [facility] Vitamin B12 Vitamin B12 2018-07 No 1000ug Common (Cyanocobal (Cyanocobal 2-24 S pirit love) love) 00:00: - [facility] EpiPen EpiPen 2018- Yes Michael as Common 2-Negrito 2-Negrito 2-09 Magdaleno directed Spirit 00:00: - [facility] Vitamin B12 Vitamin B12 2017-07 No 1000ug Common (Cyanocobal (Cyanocobal 1-09 S pirit love) love) 00:00: - [facility] Vitamin B12 Vitamin B12 2017-07 No 1000ug Common (Cyanocobal (Cyanocobal 1-09 S pirit love) love) 00:00: - [facility] acetaminoph 2020- No 1{tbl} Take 1 Tab [...] Branch needed for Pain (scale 4-6). metroNIDAZO 2016-0 2020- No 500mg Take 1 Tab Univers LE (FLAGYL) 07-24 by mouth 2 i ty of 500 mg 00:00: 00:00 (two) [place] tablet 00 :00 times Medical daily. Branch traMADOL 2019- No 50mg Take 1 Tab Un brittni [...] daily. Branch ProAir HFA ProAir HFA Yes Michael 2 puffs as Common Magdaleno needed Spirit - [facility] Zoloft Zoloft Yes Michael Take 1/2 Commo n Magdaleno tab QD x 1 Spirit week then - CHI take 1 tab [facility] Zoloft Zoloft Yes Michael 1 tablet Commo n Magdaleno (100 50= Spirit 150 mg) - [facility] ProAir HFA ProAir HFA No 2{puffs ProAir [...] 2020-01-30 Completed Common Spirit (Triamcinolone) (Triamcinolone) 14:16:00 [facility] Malcolm Fowler 2020-01-30 Completed Common [facility] (Triamcinolone) (Triamcinolone) 14:16:00 [facility] Afluria single dose Afluria single dose 2019-06-27 Completed Common Spirit 09:50:00 [facility] Afluria single dose Afluria single dose 2019-06-27 Completed Common Spirit 09:50:00 [facility] Afluria single dose Afluria single dose 2019-06-27 Completed Common Spirit 09:50:00 [facility] Afluria single dose Afluria single dose 2019-06-27 Completed Common Spirit 09:50:00 [facility] Afluria single dose Afluria single dose 2019-06-27 Completed Common Spirit 09:50:00 [facility] Vitamin B12 Vitamin B12 2019-06-27 Completed Common Spiri t (Cyanocobalamin) (Cyanocobalamin) 09:49:00 [facility] Vitamin B12 Vitamin B12 2019-06-27 Completed Common Spiri t (Cyanocobalamin) (Cyanocobalamin) 09:49:00 [facility] Afluria single dose Afluria single dose 2019-06-27 Completed Common Spirit 00:00:00 [facility] Flucelvax - Flucelvax - 2018-05-13 Completed Common Spiri t multidose vial multidose vial 09:10:00 [facility] Flucelvax - Flucelvax - 2018-05-13 Completed Common Spiri t multidose vial multidose vial 09:10:00 [facility] Flucelvax - Flucelvax - 2018-05-13 Completed Common Spiri t multidose vial multidose vial 09:10:00 [facility] Flucelvax - Flucelvax - 2018-05-13 Completed Common Spiri t multidose vial multidose vial 09:10:00 [facility] Flucelvax - Flucelvax - 2018-05-13 Completed Common Spiri t multidose vial multidose vial 09:10:00 [facility] Vitamin B12 Vitamin B12 2018-05-13 Completed Common Spiri t (Cyanocobalamin) (Cyanocobalamin) 08:59:00 [facility] Vitamin B12 Vitamin B12 2018-05-13 Completed Common Spiri t (Cyanocobalamin) (Cyanocobalamin) 08:59:00 [facility] Pneumovax (PPSV23) Pneumovax (PPSV23) 2018-04-01 Completed [facility] Spirit 11:38:00 [facility] Pneumovax (PPSV23) Pneumovax (PPSV23) 2018-04-01 Completed [facility] 11:38:00 [facility] Pneumovax (PPSV23) Pneumovax (PPSV23) 2018-04-01 Completed [facility] 11:38:00 [facility] Pneumovax (PPSV23) Pneumovax (PPSV23) 2018-04-01 Completed [facility] 11:38:00 - [facility] Pneumovax (PPSV23) Pneumovax (PPSV23) 2018-04-01 Completed [facility] 11:38:00 - [facility] Pneumovax Pneumovax 2018-04-01 Completed [facility] Spirit 00:00:00 [facility] Vital Signs Vital Name Observation Time Observation Value Comments Source Systolic blood 2022-08-15 11:50:57 126 mm[Hg] Univer sity [facility] Diastolic blood 2022-08-15 11:50:57 87 mm[Hg] [facility] 2022-08-15 11:50:57 58 /min [facility] Respiratory rate 2022-08-15 11:50:57 17 /min [facility] Oxygen saturation in 2022-08-15 11:50:57 95 /min [facility] Arterial blood by [facility] Pulse oximetry Branch Body temperature 2022-08-15 08:57:00 36.61 Latonya [facility] Body height 2022-08-15 08:57:00 180.3 cm [facility] Body weight 2022-08-15 08:57:00 99.791 kg [facility] BMI 2022-08-15 08:57:00 30.68 kg/m2 Universi ty of [facility] height 2022-06-08 08:50:00 71 [in_i] Common [facility] weight 2022-06-08 08:50:00 222.0 [lb_av] [facility] temperature 2022-06-08 08:50:00 97.0 [degF] Common [facility] bmi 2022-06-08 08:50:00 30.96 kg/m2 [facility] oximetry 2022-06-08 08:50:00 99 % [facility] respiratory rate 2022-06-08 08:50:00 18 /min Comm on [facility] blood pressure 2022-06-08 08:50:00 124 mm[Hg] Common [facility] - systolic [facility] blood pressure 2022-06-08 08:50:00 79 mm[Hg] Common [facility] diastolic [facility] Systolic blood 2022-05-20 12:00:00 135 mm[Hg] Univer sity of [facility] Diastolic blood 2022-05-20 12:00:00 82 mm[Hg] [facility] rate 2022-05-20 12:00:00 65 /min [facility] Respiratory rate 2022-05-20 12:00:00 16 /min [facility] Oxygen saturation in 2022-05-20 12:00:00 97 /min [facility] Arterial blood by [facility] Pulse oximetry Branch Body temperature 2022-05-20 09:22:00 37 Latonya [facility] Body height 2022-05-20 09:22:00 180.3 cm Universi ty [facility] Body weight 2022-05-20 09:22:00 102.059 kg Universi [facility] BMI 2022-05-20 09:22:00 31.38 kg/m2 Universi [facility] height 2021-09-12 10:50:00 71 [in_i] Common [facility] weight 2021-09-12 10:50:00 220.6 [lb_av] Common [facility] temperature 2021-09-12 10:50:00 97.4 [degF] Common S pirit [facility] bmi 2021-09-12 10:50:00 30.76 [facility] oximetry 2021-09-12 10:50:00 97 % Common S pirit [facility] respiratory rate 2021-09-12 10:50:00 17 /min Comm on [facility] blood pressure 2021-09-12 10:50:00 126 mm[Hg] Common Spirit - systolic [facility] blood pressure 2021-09-12 10:50:00 79 mm[Hg] Common [facility] - diastolic [facility] height 2021-06-25 09:50:00 71 [in_i] Common [facility] weight 2021-06-25 09:50:00 225.0 [lb_av] Common [facility] temperature 2021-06-25 09:50:00 98.3 [degF] [facility] 2021-06-25 09:50:00 31.38 kg/m2 Common S [facility] oximetry 2021-06-25 09:50:00 98 % [facility] 2021-06-25 09:50:00 17 /min Comm on [facility] blood pressure 2021-06-25 09:50:00 123 mm[Hg] Common [facility] - systolic [facility] blood pressure 2021-06-25 09:50:00 79 mm[Hg] [facility] - diastolic [facility] height 2021-02-21 09:10:00 71 [in_i] Common S pirit [facility] weight 2021-02-21 09:10:00 220 [lb_av] Common S pirit [facility] temperature 2021-02-21 09:10:00 97.5 [degF] Common S pirit - [facility] bmi 2021-02-21 09:10:00 30.68 kg/m2 Common S pirit - [facility] blood pressure 2021-02-21 09:10:00 125 mm[Hg] [facility] - systolic [facility] blood pressure 2021-02-21 09:10:00 70 mm[Hg] [facility] - diastolic [facility] Systolic blood 2020-04-01 14:00:00 114 mm[Hg] Univer sity of pressure [facility] Diastolic blood 2020-04-01 14:00:00 73 mm[Hg] Unive rsity of pressure [facility] Heart rate 2020-04-01 14:00:00 69 /min Universi ty of [facility] Respiratory rate 2020-04-01 14:00:00 20 /min Univ ersity of [facility] Oxygen saturation in 2020-04-01 14:00:00 92 /min University of Arterial blood by [facility] Pulse oximetry Branch Body temperature 2020-04-01 11:03:00 36.61 Latonya Univ ersity of [facility] Body height 2020-04-01 11:03:00 180.3 cm [facility] Body weight 2020-04-01 10:39:00 95.255 kg [facility] BMI 2020-04-01 10:39:00 29.29 kg/m2 [facility] Systolic blood 2020-01-18 20:29:00 141 mm[Hg] Univer sity of pressure [facility] Diastolic blood 2020-01-18 20:29:00 79 mm[Hg] Unive rsity of pressure [facility] Heart rate 2020-01-18 20:29:00 91 /min [facility] [place] [facility] Respiratory rate 2020-01-18 20:29:00 18 /min Univ ersity of [facility] Branch Body height 2020-01-18 20:29:00 180.3 cm [facility] Body weight 2020-01-18 20:29:00 96.843 kg [facility] BMI 2020-01-18 20:29:00 29.78 kg/m2 Universi ty of [facility] Oxygen saturation in 2020-01-18 20:29:00 98 /min University of Arterial blood by [facility] Pulse oximetry Branch Procedures Procedure Date / Time Performed Performing Clinician Sour e CONSENT/REFUSAL FOR 2022-08-15 08:50:40 Doctor Unassigned, No [facility] [place] DI[facility] AND Name Medical Branch TREATMENT CT ABDOMEN PELVIS W 2022-05-20 11:45:00 Rosio Bruno [facility] CONTRAST Medical Branch LIPASE 2022-05-20 09:32:00 Rosio Bruno [facility] [place] COMP. METABOLIC PANEL 2022-05-20 09:32:00 Rosio Bruno [facility] ([id number]) Medical Branch CBC WITH DIFF 2022-05-20 09:32:00 Rosio Bruno [facility] NOTICE OF PRIVACY 2022-05-20 09:00:14 Doctor Unassigned, No Univ [facility] PRACTICES Name Medical Branch CONSENT/REFUSAL FOR 2022-05-20 08:59:04 Doctor Unassigned, No [facility] [place] DIAGNOSIS AND Name Medical Branch TREATMENT CLINIC RECORD / SMR 2021-01-13 05:01:00 Doctor Unassigned, No [facility] [place] Name Medical Branch CONSENT/REFUSAL FOR 2020-04-01 10:35:37 Doctor Unassigned, No Un [facility] [place] DIAGNOSIS AND Name Medical Branch TREATMENT XR CHEST 2 VW 2020-01-18 21:48:[address] [facility] o f [facility] ASSIGNMENT OF BENEFITS 2020-01-18 21:19:53 Doctor Unassigned, No [facility] Medical Branch Encounters Start End Encounter Admission Attending Care Care Encounter Source Date/Time Date/Time Type Type Clinicians Facility Department ID 2021-07-30 Outpatient Magdaleno, [facility] [id number] Common 14:27:52 Michael [id number] [facility] 2021-07-30 Outpatient Magdaleno, STLMLC [facility] [id number] Common 12:26:30 Michael [id number] [facility] 2021-07-30 Outpatient Magdaleno, STLMLC [facility] [id number] Common 11:21:25 Michael [id number] [facility] 2021-07-30 Outpatient Magdaleno, STLMLC [facility] [id number] Common 11:18:07 Michael [id number] [facility] 2021-07-30 Outpatient [facility], [facility] [id number] Common 11:00:38 Michael [id number] [facility] 2021-07-30 Outpatient Magdaleno, [facility] [id number] Common 10:59:20 Michael [id number] Spirit [facility] 2021-05-02 Emergency [facility] [id number] Univers 19:39:40 ity of [facility] 2022-08-15 2022-08-15 Emergency X GEORGE CASTRO [facility] ERT 1 [id number] Univers 03:00:00 06:34:00 GEORGE CASTRO itwillian [facility] 2022-08-15 2022-08-15 [facility] [id number] Univers 03:00:00 06:34:00 George WEAVER [id number] i ty of [place] [id number] [facility] [id number] [address] 2022-06-08 2022-06-08 OFFICE [facility] [id number] Co mmon 00:00:00 00:00:00 VISIT [facility] PT - CHI LEVEL 4 [facility] 2022-05-20 2022-05-20 Emergency [facility] [id number] Univers 03:16:00 06:47:00 ROSIO simsy [facility] 2022-05-20 2022-05-20 Emergency [facility] [id number] Univers 03:16:00 06:47:00 Rosio Salazar RIO [id number] ity of [place] [id number] [facility] [id number] [address] 2022-05-20 2022-05-20 Orders Doctor CESAR [id number] Univers 00:00:00 00:00:00 Only Unassigned, MAYA [id number] ity of [place] [facility] [id number] Zuhair as [phone] [facility] jessica 009 Branch 2021-09-12 2021-09-12 PREV VISIT STLMLC STLMLC [id number] Common 00:00:00 00:00:00 EST AGE Wander 40-64 - [facility] 2021-06-25 2021-06-25 OFFICE STLMLC STLMLC [id number] Co mmon 00:00:00 00:00:00 VISIT Spirit ESTAB PT - CHI LEVEL 4 [facility] 2021-02-21 2021-02-21 OFFICE STLMLC STLMLC [id number] Co mmon 00:00:00 00:00:00 VISIT Spirit ESTAB PT - CHI LEVEL 4 [facility] 2021-01-28 2021-01-28 (TEL) STLMLC STLMLC [id number] Co mmon 00:00:00 00:00:00 [facility] 2021-01-13 2021-01-13 Orders Doctor CESAR [id number] Univers 00:00:00 00:00:00 Only Unassigned, MAYA [id number] ity of [place] [facility] [id number] Zuhair as [phone] [facility] jessica 009 Branch 2020-08-30 2020-08-30 Outpatient STLMLC ST[facility] [id number] Common 00:00:00 00:00:00 [facility] 2020-08-30 2020-08-30 Outpatient STLMLC STL[facility]C [id number] Common 00:00:00 00:00:00 [facility] 2020-08-02 2020-08-02 Outpatient STLMLC STLMLC [id number] Common 00:00:00 00:00:00 [facility] 2020-04-01 2020-04-01 Emergency Singer [facility] [id number] Univers 05:41:00 09:16:00 Orville Weaver [id number] i [id number] [id number] [facility] jessica 084 Branch 2020-03-22 2020-03-22 Outpatient REYMUNDO CHRISTOPHER [facility] 10 [id number] Univers 15:40:00 15:40:00 REYMUNDO HINTON i ty of [facility] 2020-01-30 2020-01-30 Outpatient Austin Nye [id number] Common 13:45:00 13:45:00 t [employer] [facility] it [employer] [facility] 2020-01-26 2020-01-26 [facility]phone [facility] [id number] Univers 00:00:00 00:00:00 Reymundo Weaver [id number] [id number] [id number] [place] [address] 2020-01-19 2020-01-19 [facility] [id number] Univers 00:00:00 00:00:00 Reymundo Weaver [id number] [id number] [phone] [place] dictx [place]al [address] [place] [address] 2020-01-18 2020-01-18 Hospital [facility] [id number] Univers 16:41:00 23:59:00 Encounter Reymundo Weaver [id number] it[id number] [id number] [facility] [address] 2020-01-18 2020-01-18 Office [facility] [id number] Univers 15:17:34 16:16:16 Visit Reymundo Weaver [id number] i [id number] [id number] [place] [address] 2020-01-18 2020-01-18 Outpatient R REYMUNDO HINTON [facility] 10 [id number] Univers 15:20:00 15:20:00 REYMUNDO HINTON i ty of [facility] 2020-01-18 2020-01-18 Orders Doctor CESAR [id number] Univers 00:00:00 00:00:00 Only Unassigned, MAYA [id number] ity of [place] [facility] [id number] [place] as [phone] [facility] 009 Branch 2020-01-09 2020-01-09 Out[facility] [id number] Common 10:41:00 10:41:00 t Specialty/U Sp kenia Specialty rology - [facility] /Urology Clinic [facility] 2020-01-01 2020-01-01 Outpatient [facility] [id number] Common 13:20:00 13:20:00 t [facility] [address] [facility] 2019-12-29 2019-12-29 Outpatient [facility] [id number] Common 11:40:00 11:40:[address] [facility] 2019-12-26 2019-12-26 Outpatient [facility] [id number] Common 11:22:00 11:22:[address] [facility] 2019-12-26 2019-12-26 Outpatient [facility] [id number] Common 10:04:00 10:04:[address] [facility] 2019-12-18 2019-12-18 Out[facility] [id number] Common 09:16:00 09:16:[address] [facility] 2019-11-28 2019-11-28 Out[facility] [id number] Common 10:00:00 10:00:[address] [facility] 2019-11-28 2019-11-28 Outpatient STLMLC STLMLC [id number] Common 00:00:00 00:00:00 [facility] 2019-10-20 2019-10-20 Out[facility] [id number] Common 11:15:00 11:15:[address] [facility] 2019-07-18 2019-07-18 Outpatient [facility] [id number] Common 16:45:00 16:45:[address] [facility] 2019-06-27 2019-06-27 Outpatient [facility] [id number] Common 08:15:00 08:15:[address] [facility] 2019-06-26 2019-06-26 Outpatient [facility] [id number] Common 16:25:00 16:25:[address] [facility] 2019-06-14 2019-06-14 Outpatient [facility] [id number] Common 13:49:00 13:49:[address] [facility] 2019 2019 Out[facility] [id number] Common 15:33:00 15:33:[address] [facility] 2019-06-12 2019-06-12 Outpatient [facility] [id number] Common 09:15:00 09:15:[address] [facility] 2018-04-01 2018-04-01 Outpatient [facility] [id number] Common 08:30:00 08:30:[address] [facility] Results Test Description Test Time Test Comments Results Result Sour e Comments XR CHEST 2 VW 2020-01-18 [...]
[2022-11-13] MEDS ORDERED: NA CHLORIDE 0.9% 1,000 ML ONE (13:58)
[2022-11-13 14:20] LABS: Absolute Lymphocytes (CBC) 1.8 K/uL (0.7-4.9); Hematocrit 49.6 % (39.6-49.0); Lymphocytes % 20.4 % (15.3-44.8); MCV 94.1 fL (80-100); MPV 8.2 fL (7.6-11.3); RBC Red Blood Cell Count 5.27 M/uL (4.33-5.43)
[2022-11-13 14:31] LABS: Specific Gravity 1.024 (1.005-1.030); Urine Bilirubin NEGATIVE (Negative); Urine Blood Negative (Negative); Urine Clarity Clear (Clear); Urine Color Yellow (Yellow); Urine Glucose NEGATIVE (Negative); Urine Protein NEGATIVE (Negative); Urine Urobilinogen Normal (Normal); Urine pH 5.5 (5.0-7.0)
[2022-11-13 14:42] LABS: Albumin 3.9 g/dL (3.4-5.0); Bilirubin Total 0.6 mg/dL (0.2-1.0); Potassium 3.8 mEq/L (3.5-5.1)
[2022-11-13 14:51] LABS: Magnesium 2.3 mg/dL (1.6-2.4); Troponin High Sensitivity 3.8 pg/mL (<58.9)
--- NOTE | 2022-11-13 15:07 | RAD REPORT ---
EXAM DESCRIPTION: CTAbdomen Pelvis W Contrast - 11/13/2022 3:00 pm CLINICAL HISTORY: Abdominal pain. ABD PAIN COMPARISON: No comparisons TECHNIQUE: Biphasic CT imaging of the abdomen and pelvis was performed with 100 ml non-ionic IV cont rast. All CT scans are performed using dose optimization technique as appropriate and may include automated exposure control or mA/KV adjustment according to patient size. FINDINGS: The lung bases are clear.Cholecystectomy clips. The liver, spleen, pancreas, adrenal glands and kidneys are within normal limits. No bowel obstruction, free air, free fluid or abscess. Sigmoid diverticulosis coli is present. There is significant thickening of the focal segment of the sigmoid colon measuring 3 cm. Cannot exclude ma ss in this location. Nonvisualized appendix. No evidence of significant lymphadenopathy. No suspicious bony findings. Moderate fat containing left inguinal hernia. IMPRESSION: Sigmoid diverticulosis coli is present. There is equivocal 3 cm lesion in the region of the colon that could be a mass. Recommend colonoscopy followup. Moderate fat containing left inguinal hernia.
--- NOTE | 2022-11-13 15:19 | EDPHYS ---
Physician Documentation [facility] Name: Fab Seymour Age: 52 yrs Sex: Male : 1970 Arrival Date: 11/13/2022 Time: 13:34 Bed 5 Private MD: ED Physician Chiki Benavides HPI: 11/13 13:50 This 52 yrs old Male presents to ER via Ambulatory with complaints of Abdominal Pain, snw Difficulty Swallowing, Nausea/Vomiting/Diarrhea. 13:50 The patient presents with abdominal pain in the upper abdomen, in the right upper snw quadrant, in the left lower quadrant. Onset: The symptoms/episode began/occurred 1 month(s) ago, and became worse 3 day(s) ago, and became persistent. The symptoms do not radiate. Associated signs and symptoms: Pertinent positives: diarrhea, nausea. The symptoms are described as achy, crampy. Severity of pain: At its worst the pain was moderate. The patient has not experienced similar symptoms in the past. sees Dr. Magdaleno, had Cholecystectomy recently per Dr. Sampson. Historical: - Allergies: 13:45 No Known Allergies; hb - Home Meds: 13:52 sertraline 200 mg oral capsule every 24 hours for anxiety with depression [Active]; snw Xyzal 5 mg oral tablet daily [Active]; Pepcid AC 20 mg Oral tablet every 12 hours for dyspepsia [Active]; - Immunization history:: Adult Immunizations unknown. - Social history:: Smoking status: Patient denies any tobacco usage or history of. ROS: 13:50 Constitutional: Negative for fever, chills, and weight loss, Eyes: Negative for injury, snw pain, redness, and discharge, ENT: Negative for injury, pain, and discharge, Neck: Negative for injury, pain, and swelling, Cardiovascular: Negative for chest pain, palpitations, and edema, Respiratory: Negative for shortness of breath, cough, wheezing, and pleuritic chest pain, Back: Negative for injury and pain, : Negative for injury, bleeding, discharge, and swelling, MS/Extremity: Negative for injury and deformity, Skin: Negative for injury, rash, and discoloration, Neuro: Negative for headache, weakness, numbness, tingling, and seizure, Psych: Negative for depression, anxiety, suicide ideation, homicidal ideation, and hallucinations. 13:50 Abdomen/GI: Positive for abdominal pain, diarrhea, abdominal cramps, of the right upper quadrant and left lower quadrant. Exam: 13:49 Constitutional: This is a well developed, well nourished patient who is awake, alert, snw and in no acute distress. Head/Face: Normocephalic, atraumatic. Eyes: Pupils equal round and reactive to light, extra-ocular motions intact. Lids and lashes normal. Conjunctiva and sclera are non-icteric and not injected. Cornea within normal limits. Periorbital areas with no swelling, redness, or edema. ENT: Nares patent. No nasal discharge, no septal abnormalities noted. Tympanic membranes are normal and external auditory canals are clear. Oropharynx with no redness, swelling, or masses, exudates, or evidence of obstruction, uvula midline. Mucous membranes moist. Neck: Trachea midline, no thyromegaly or masses palpated, and no cervical lymphadenopathy. Supple, full range of motion without nuchal rigidity, or vertebral point tenderness. No Meningismus. Chest/axilla: Normal chest wall appearance and motion. Nontender with no deformity. No lesions are appreciated. Cardiovascular: Regular rate and rhythm with a normal S1 and S2. No gallops, murmurs, or rubs. Normal PMI, no JVD. No pulse deficits. Respiratory: Lungs have equal breath sounds bilaterally, clear to auscultation and percussion. No rales, rhonchi or wheezes noted. No increased work of breathing, no retractions or nasal flaring. Back: No spinal tenderness. No costovertebral tenderness. Full range of motion. Skin: Warm, dry with normal turgor. Normal color with no rashes, no lesions, and no evidence of cellulitis. MS/ Extremity: Pulses equal, no cyanosis. Neurovascular intact. Full, normal range of motion. Neuro: Awake and alert, GCS 15, oriented to person, place, time, and situation. Cranial nerves II-XII grossly intact. Motor strength 5/5 in all extremities. Sensory grossly intact. Cerebellar exam normal. Normal gait. Psych: Awake, alert, with orientation to person, place and time. Behavior, mood, and affect are within normal limits. 13:49 Abdomen/GI: Inspection: abdomen appears normal, Bowel sounds: hyperactive, in all quadrants, Palpation: moderate abdominal tenderness, in the right upper quadrant and left lower quadrant. Vital Signs: 13:30 BP 142 / 99; Pulse 77; Resp 18; Pulse Ox 97% ; ko1 13:43 BP 142 / 99; Pulse 82; Resp 16; Temp 99.1(O); Pulse Ox 99% on R/A; hb 14:00 BP 129 / 91; Pulse 76; Resp 16; Pulse Ox 96% ; ko1 14:15 BP 126 / 86; Pulse 73; Resp 18; Pulse Ox 97% ; ko1 MDM: 13:48 Patient medically screened. snw 15:09 Differential diagnosis: bowel obstruction, gastritis, gastroesophageal reflux disease, snw Hepatitis, non-specific abd pain, pancreatitis. 15:14 Data reviewed: vital signs, nurses notes, lab test result(s), radiologic studies. snw Counseling: I had a detailed discussion with the patient and/or guardian regarding: the historical points, exam findings, and any diagnostic results supporting the discharge/admit diagnosis, lab results, radiology results, the need for outpatient follow up, must f/u for colonoscopy to evaluate possible mass, to return to the emergency department if symptoms worsen or persist or if there are any questions or concerns that arise at home. Special discussion: Based on the patient's Hx, exam, and Dx evaluation, there is no indication for emergent surgery or inpatient Tx. It is understood by the patient/guardian that if the Sx's persist or worsen they need to return immediately for re-evaluation. Based on the history and exam findings, there is no indication for further emergent testing or inpatient evaluation. I discussed with the patient/guardian the need to see the antenna rigger for further evaluation of the symptoms. I discussed with the patient/guardian the need to see the general surgeon for further evaluation of the symptoms. I discussed with the patient/guardian the need to see the primary care provider for further evaluation of the symptoms. 11/13 13:48 Order name: CBC with Diff; Complete Time: 14:51 snw 11/13 13:48 Order name: CMP; Complete Time: 14:51 snw 11/13 13:48 Order name: Lipase; Complete Time: 14:51 snw 11/13 13:48 Order name: Urinalysis w/ reflexes; Complete Time: 14:51 snw 11/13 13:53 Order name: Troponin High Sensitivity; Complete Time: 15:08 snw 11/13 13:54 Order name: CPK; Complete Time: 15:08 snw 11/13 13:54 Order name: Magnesium; Complete Time: 15:08 snw 11/13 13:48 Order name: CT Abd/Pelvis - IV Contrast Only; Complete Time: 15:08 snw 11/13 13:48 Order name: IV Saline Lock; Complete Time: 14:09 snw 11/13 13:48 Order name: Labs collected and sent; Complete Time: 14:09 snw Administered Medications: 14:10 Drug: NS 0.9% IV 1000 ml Route: IV; Rate: 1 bolus; Site: right antecubital; ko1 15:00 Follow up: Response: No adverse reaction; IV Status: Completed infusion; IV Intake: ko1 1000ml 15:25 Drug: Ciprofloxacin PO 500 mg Route: PO; ko1 15:35 Follow up: Response: No adverse reaction ko1 Disposition: 16:48 Co-signature as Attending Physician, Chiki Benavides MD I agree with the assessment and kdr plan of care. Disposition Summary: 11/13/22 15:18 Discharge Ordered Location: Home snw Condition: Stable snw Diagnosis - Other intra-abdominal and pelvic swelling, mass and lump snw - Diverticulosis of large intestine without perforation or abscess without bleeding snw Followup: snw - With: Emergency Department - When: As needed - Reason: Worsening of condition Followup: snw - With: Paulo Sampson MD - When: 2 - 3 days - Reason: Recheck today's complaints, Continuance of care, Re-evaluation by your physician Discharge Instructions: - Discharge Summary Sheet snw - High-Fiber Eating Plan snw - Diverticulosis snw - Colonoscopy, Adult snw - Colon Mass, Adult snw Forms: - Medication Reconciliation Form snw - Thank You Letter snw - Antibiotic Education snw - Prescription Opioid Use snw Prescriptions: - Cipro 500 mg Oral Tablet - take 1 tablet by ORAL route every 12 hours for 10 days; 20 tablet; Refills: 0, snw Product Selection Permitted Signatures: Dispatcher [employer] Chiki Wilde MD MD kdr Waters, Shelly, FNP-C [employer] Mariya Epstein RN RN hb Ken, Grazyna, RN RN ko1
--- NOTE | 2022-11-13 15:19 | ER ---
Nurse's Notes [facility] Name: Fab Seymour Age: 52 yrs Sex: Male : 1970 Arrival Date: 11/13/2022 Time: 13:34 Bed 5 Private MD: Diagnosis: Other intra-abdominal and pelvic swelling, mass and lump;Diverticulosis of large intestine without perforation or abscess without bleeding Presentation: 11/13 13:43 Chief complaint: Lower abdominal pain and diarrhea x 2 months, worse over last 10 days. hb Also c/o difficulty swallowing and nausea. Coronavirus screen: Client presents with at least one sign or symptom that may indicate coronavirus-19. Provider contacted for isolation considerations. Ebola Screen: No symptoms or risks identified at this time. Initial Sepsis Screen: Does the patient meet any 2 criteria? No. Patient's initial sepsis screen is negative. Does the patient have a suspected source of infection? No. Patient's initial sepsis screen is negative. Risk Assessment: Do you want to hurt yourself or someone else? Patient reports no desire to harm self or others. Onset of symptoms was September 2022. 13:43 Method Of Arrival: Ambulatory hb 13:43 Acuity: CATHY 3 hb Triage Assessment: 14:00 General: Appears in no apparent distress. uncomfortable, Behavior is calm, cooperative, ko1 appropriate for age. Historical: - Allergies: 13:45 No Known Allergies; hb - Home Meds: 13:52 sertraline 200 mg oral capsule every 24 hours for anxiety with depression [Active]; snw Xyzal 5 mg oral tablet daily [Active]; Pepcid AC 20 mg Oral tablet every 12 hours for dyspepsia [Active]; - Immunization history:: Adult Immunizations unknown. - Social history:: Smoking status: Patient denies any tobacco usage or history of. Screenin:15 [facility] ED Fall Risk Assessment (Adult) History of falling in the last 3 months, ko1 including since admission No falls in past 3 months (0 pts) Confusion or Disorientation No (0 pts) Intoxicated or Sedated No (0 pts) Impaired Gait No (0 pts) Mobility Assist Device Used No (0 pt) Altered Elimination No (0 pt) Score/Fall Risk Level 0 - 2 = Low Risk Oriented to surroundings, Maintained a safe environment, Educated pt \T\ family on fall prevention, incl call for assistance when getting out of bed, Assessed \T\ reinforced patient's understanding of fall precautions, Provided non-skid footwear, Hourly rounding (assess needs \T\ fall precautionary measures) done, Used ambulatory aids as needed (educated on \T\ assisted with), Used gait belt as appropriate. Abuse screen: Denies threats or abuse. Denies injuries from another. Nutritional screening: No deficits noted. Tuberculosis screening: No symptoms or risk factors identified. Assessment: 14:00 General:. Pain: Complains of pain in left lower quadrant and right upper quadrant. ko1 Neuro: No deficits noted. Cardiovascular: No deficits noted. Respiratory: No deficits noted. GI: Bowel sounds present X 4 quads. Abd is soft and non tender X 4 quads. : No deficits noted. EENT: No deficits noted. Derm: No deficits noted. Musculoskeletal: No deficits noted. Vital Signs: 13:30 BP 142 / 99; Pulse 77; Resp 18; Pulse Ox 97% ; ko1 13:43 BP 142 / 99; Pulse 82; Resp 16; Temp 99.1(O); Pulse Ox 99% on R/A; hb 14:00 BP 129 / 91; Pulse 76; Resp 16; Pulse Ox 96% ; ko1 14:15 BP 126 / 86; Pulse 73; Resp 18; Pulse Ox 97% ; ko1 ED Course: 13:36 Patient arrived in ED. ts1 13:39 Lexi Navarro FNP-C [facility]. snw 13:39 Chiki Benavides MD is Attending Physician. snw 13:43 Grazyna Rogers, PLACIDO is Primary Nurse. ko1 13:45 Triage completed. hb 13:45 Arm band placed on. hb 13:55 Radiology exam delayed due to lab results not completed at this time. (BUN/Creatinine) [id number] IV insertion attempt and/or patient not having appropriate IV at this time. 14:05 Inserted saline lock: 20 gauge in right antecubital area, using aseptic technique. ko1 Blood collected. 14:09 Magnesium Sent. ko1 14:09 CPK Sent. ko1 14:09 Troponin High Sensitivity Sent. ko1 14:09 CBC with Diff Sent. ko1 14:09 CMP Sent. ko1 14:09 Lipase Sent. ko1 14:10 Urinalysis w/ reflexes Sent. ko1 14:15 Patient has correct armband on for positive identification. Bed in low position. Call ko1 light in reach. Pulse ox on. NIBP on. Door closed. Noise minimized. Lights dimmed. Warm blanket given. Pillow given. 14:15 No provider procedures requiring assistance completed. ko1 15:01 CT Abd/Pelvis - IV Contrast Only In Process Unspecified. EDMS 15:16 Paulo Sampson MD is Referral Physician. snw 15:27 IV discontinued, intact, bleeding controlled, No redness/swelling at site. Pressure ko1 dressing applied. Administered Medications: 14:10 Drug: NS 0.9% IV 1000 ml Route: IV; Rate: 1 bolus; Site: right antecubital; ko1 15:00 Follow up: Response: No adverse reaction; IV Status: Completed infusion; IV Intake: ko1 1000ml 15:25 Drug: Ciprofloxacin PO 500 mg Route: PO; ko1 15:35 Follow up: Response: No adverse reaction ko1 Medication: 14:15 VIS not applicable for this client. ko1 Intake: 15:00 IV: 1000ml; Total: 1000ml. ko1 Output: 14:00 Urine: 400ml (Voided); Total: 400ml. ko1 Outcome: 15:18 Discharge ordered by . snw 15:27 Discharged to home ambulatory. ko1 15:27 Condition: stable 15:27 Discharge instructions given to patient, Instructed on discharge instructions, follow up and referral plans. medication usage, Demonstrated understanding of instructions, follow-up care, medications, Prescriptions given X 1. 16:09 Patient left the ED. ko1 Signatures: Dispatcher [employer] EDKS Lexi Navarro, POULTRY HATCHERY MANAGER-C POULTRY HATCHERY MANAGER-Csnw Mariya Epstein, RN RN Grazyna Rogers, PLACIDO RN ko1 Linnea Newman [id number] Jeannine Salazar PAS PAS ts1
[2022-11-13] MEDS ORDERED: CIPROFLOXACIN HCL 500 MG TAB ONE (15:23)
[2022-11-13 16:14] VITALS: TEMP 99.1
[2022-11-13 16:17] VITALS: BP 126/86; O2SAT 97
== END 2022-11-13 16:09 | disposition home or self-care (01) ==
LOC: ER 13:34
DX: K57.30 Diverticulosis of large intestine without perforation or abscess without bleeding (principal)
CPT/HCPCS: 85025; 36415; 83735; 82550; 81003; 84484; 83690; 80053; 74177; 96360; 99284; Q9967; J7030